=== PATIENT | female | born 1975 | race Caucasian/White ===

== ENCOUNTER 2017-04-22 16:08 | Emergency (ER) | payer BC, SELFPAY ==
[2017-04-22 17:56] VITALS: BP 148/73; PULSE 78; RESP 18; TEMP 37.7; O2SAT 99; BMI 28.8
--- NOTE | 2017-04-22 18:25 | HMH.EDUTC ---
[facility] Disposition Clinical Impression: Upper respiratory infection Qualifiers: URI type: unspecified URI Qualified Code(s): J06.9 - Acute upper respiratory infection, unspecified Disposition: Home, Self-Care Condition on Discharge: Good Instructions: Cough, DI for Nasal Congestion Additional Instructions: * Monitor Temp. Tylenol and/or Ibuprofen as needed. ER if fever is no less than 101 despite alternating Tylenol and Ibuprofen * Encourage fluids, water, Gatorade, powerade, pedialyte if /toddler/or child * Warm salt water gargles for throat irritation *Warm fluids *Sore throat lozenges *Sleep elevated *humidifier or vaporizer Lots of rest Increase fluids, water, Gatorade, powerade *Your throat swab was sent to lab for culture. Those results area typically sent to your primary care physician. Be sure to follow up in 2-3 days if no improvement so they can review those results and treat if necessary If you dont have primary care I recommend you get one, but in the mean time you will have to return to a walk in clinic Follow up IMMEDIATELY for new or worsening of symptoms OR no noticeable improvement over the next 48-72 hours. 911 immediately for any life threatening symptoms such as chest pain or difficulty breathing Prescriptions: Azithromycin [Z-Santo 250mg Tab] 250 mg PO UD DOSE PK #6 tab Benzonatate [Tessalon Perle 100mg Cap] 100 mg PO TID PRN #15 cap PRN Reason: Cough predniSONE [Deltasone 20mg tablet] 20 mg PO BID #10 tablet Referrals: Chris Duke MD [Primary Care Provider] - Time of Disposition: 18:38 Medical Decision Making Vital Signs: 04/22/17 17:56 Temperature 99.8 F H Temperature Source Temporal Artery Scan Pulse Rate [Right] 78 Respiratory Rate 18 Blood Pressure [Right Arm] 148/73 Blood Pressure Mean [Right Arm] 98 Blood Pressure Source [Right Arm] Automatic Cuff Blood Pressure Position [Right Arm] Sitting 02 Sat by Pulse Oximetry 99 Oxygen Delivery Method Room Air - James Inquiry Pt receiving controlled substance: No James was queried for this patient: No [facility] HPI - General Stated complaint: sore throat/body aches Mode of Arrival: Ambulatory Source of Information: Patient Limitations: No Limitations Description of Symptoms (Recalled from Triage Doc. by RN): COUGH, CONGESTION YESTERDAY HEENT Symptoms (Recalled from RN notes): Yes Resp Symptoms (Recalled from RN notes): No Skin Symptoms (Recalled from RN notes): No MS Symptoms (Recalled from RN notes): No Functional Status (Recalled from RN notes): N - History of Present Illness Provider Complaint: Patient state she has been having cough and congestion along wth sinus drainage and pressure States that it has continued to get worse over the last few days States that she had to miss work because of her illness so she came in to be seen - Related Data Previous Rx's Medication Instructions Recorded Azithromycin [Z-Santo 250mg Tab] 250 mg PO UD DOSE PK #6 tab 04/22/17 Benzonatate [Tessalon Perle 100mg 100 mg PO TID PRN #15 cap 04/22/17 Cap] predniSONE [Deltasone 20mg 20 mg PO BID #10 tab 04/22/17 tablet] Allergies Allergy/AdvReac Type Severity Reaction Status Date / Time Penicillins Allergy Mild Verified 04/22/17 18:01 iodine Allergy Unknown BLISTERING Verified 04/22/17 18:01 WELTS ofloxacin Allergy Unknown Verified 04/22/17 18:01 ADHESIVES Allergy Severe S-BLISTERING Uncoded 04/07/17 14:39 WELTS - Worker's Comp Is this a Worker's Comp case?: No [facility] History - *Social History Alcohol Intake: never - Psychiatric History Expresses thoughts of harming self/others: None Suicide Plan Description: No Plan - Constitutional Reports chills, Reports fever(s) - ENT Reports sore throat - Respiratory Reports cough Physical Exam - General General appearance: alert, in no apparent distress - Expanded ENT Exam Nose exam: Present: sinus tenderness Comment: Throat red, ir
--- NOTE | 2017-04-22 18:29 | ED_ITS ---
[facility] [place] Disposition Clinical Impression: Upper respiratory infection Qualifiers: URI type: unspecified URI Qualified Code(s): J06.9 - Acute upper respiratory infection, unspecified Disposition: Home, Self-Care Condition on Discharge: Good Instructions: Cough, DI for Nasal Congestion Additional Instructions: * Monitor Temp. Tylenol and/or Ibuprofen as needed. ER if fever is no less than 101 despite alternating Tylenol and Ibuprofen * Encourage fluids, water, Gatorade, powerade, pedialyte if /toddler/or child * Warm salt water gargles for throat irritation *Warm fluids *Sore throat lozenges *Sleep elevated *humidifier or vaporizer Lots of rest Increase fluids, water, Gatorade, powerade *Your throat swab was sent to lab for culture. Those results area typically sent to your primary care physician. Be sure to follow up in 2-3 days if no improvement so they can review those results and treat if necessary If you don? t have primary care I recommend you get one, but in the mean time you will have to return to a walk in clinic Follow up IMMEDIATELY for new or worsening of symptoms OR no noticeable improvement over the next 48-72 hours. 911 immediately for any life threatening symptoms such as chest pain or difficulty breathing Prescriptions: Azithromycin [Z-Santo 250mg Tab] 250 mg PO UD DOSE PK #6 tab Benzonatate [Tessalon Perle 100mg Cap] 100 mg PO TID PRN #15 cap PRN Reason: Cough predniSONE [Deltasone 20mg tablet] 20 mg PO BID #10 tablet Referrals: Chris Dkue MD [Primary Care Provider] - Time of Disposition: 18:38 Medical Decision Making Vital Signs: 04/22/17 17:56 Temperature 99.8 F H Temperature Source Temporal Artery Scan Pulse Rate [Right] 78 Respiratory Rate 18 Blood Pressure [Right Arm] 148/73 Blood Pressure Mean [Right Arm] 98 Blood Pressure Source [Right Arm] Automatic Cuff Blood Pressure Position [Right Arm] Sitting 02 Sat by Pulse Oximetry 99 Oxygen Delivery Method Room Air - James Inquiry Pt receiving controlled substance: No James was queried for this patient: No [facility] [place] HPI - General Stated complaint: sore throat/body aches Mode of Arrival: Ambulatory Source of Information: Patient Limitations: No Limitations Description of Symptoms (Recalled from Triage Doc. by RN): COUGH, CONGESTION YESTERDAY HEENT Symptoms (Recalled from RN notes): Yes Resp Symptoms (Recalled from RN notes): No Skin Symptoms (Recalled from RN notes): No MS Symptoms (Recalled from RN notes): No Functional Status (Recalled from RN notes): N - History of Present Illness Provider Complaint: Patient state she has been having cough and congestion along wth sinus drainage and pressure States that it has continued to get worse over the last few days States that she had to miss work because of her illness so she came in to be seen - Related Data Previous Rx's Medication Instructions Recorded Azithromycin [Z-Santo 250mg Tab] 250 mg PO UD DOSE PK #6 tab 04/22/17 Benzonatate [Tessalon Perle 100mg 100 mg PO TID PRN #15 cap 04/22/17 Cap] predniSONE [Deltasone 20mg 20 mg PO BID #10 tab 04/22/17 tablet] Allergies Allergy/AdvReac Type Severity Reaction Status Date / Time Penicillins Allergy Mild Verified 04/22/17 18:01 iodine Allergy Unknown BLISTERING Verified 04/22/17 18:01 WELTS ofloxacin Allergy Unknown Verified 04/22/17
[2017-04-22 18:33] LABS: UTC Influenza A Antigen Negative (Negative); UTC Influenza B Antigen Negative (Negative)
== END 2017-04-22 18:50 | disposition home or self-care (01) ==
PROVIDERS: Emergency Provider Nurse Practitioner; Family Provider Internal Medicine Adolescent Medicine; PCP Internal Medicine Adolescent Medicine
DX: J06.9 Acute upper respiratory infection, unspecified (principal); Z88.0 Allergy status to penicillin; Z88.8 Allergy status to other drugs, medicaments and biological substances
CPT/HCPCS: 87276; 87804; 99202

== ENCOUNTER 2017-06-14 18:42 | Emergency (ER) | payer BC, SELFPAY ==
[2017-06-14 18:57] VITALS: BP 130/92; PULSE 79; RESP 20; TEMP 37.2; O2SAT 99; BMI 28.8
--- NOTE | 2017-06-14 18:58 | HMH.EDUTC ---
[facility] [place] Impression: Gastroenteritis Disposition: Home, Self-Care Condition on Discharge: Good Instructions: DI for Viral Gastroenteritis -- Adult Prescriptions: Ondansetron [Zofran 8mg ODT] 8 mg PO TIDP PRN 10 Days #30 tab PRN Reason: nausea/vomiting Referrals: Chris Duke MD [Primary Care Provider] - Time of Disposition: 19:44 Medical Decision Making - Medical Records Medical records reviewed: Yes: I reviewed the patient's medical records. Vital Signs: 06/14/17 18:57 Temperature 98.9 F Temperature Source Temporal Artery Scan Pulse Rate [Left Brachial] 79 Respiratory Rate 20 Blood Pressure [Left Arm] 130/92 Blood Pressure Mean [Left Arm] 104 Blood Pressure Source [Left Arm] Automatic Cuff Blood Pressure Position [Left Arm] Sitting 02 Sat by Pulse Oximetry 99 Oxygen Delivery Method Room Air - Lab Data Lab Results 06/14/17 19:20: Influenza Type A Ag Negative, Influenza Type B Ag Negative Orders (Tests/Meds): ED MEDICATIONS Discontinued Medications Generic Name Dose Route Start Last Admin Trade Name Freq PRN Reason Stop Dose Admin Ondansetron HCl 4 mg 06/14/17 19:10 06/14/17 19:11 Zofran 4mg Odt 06/14/17 19:11 4 mg ONCE ONE Administration Ondansetron HCl 4 mg 06/14/17 19:41 Zofran 4mg Odt 06/14/17 19:42 ONCE ONE - James Inquiry Pt receiving controlled substance: No Medical Decision Making Narrative: No vomiting or diarrhea after Zofran ODT - able to tolerate Sprite [facility] [place] - General Stated complaint: vomiting, diaherra, body aches Time Seen by Provider: 06/14/17 18:58 - History of Present Illness Provider Complaint: Nausea, vomiting and diarrhea since early this am. Seems to be getting worse as the day goes on. Mouth is very dry and feels weak and shaky. Has been hot and clammy, then has chills, but didn't take temp with thermometer. No sore throat or cough. Left ear feels full. Onset (ago): hour(s) (12) Location: abdomen Relieving factors: none Exacerbating factors: eating Associated symptoms: fever/chills, nausea/vomiting Treatments prior to arrival: none - Related Data Previous Rx's Medication Instructions Recorded Azithromycin [Z-Santo 250mg Tab] 250 mg PO UD DOSE PK #6 tab 04/22/17 Benzonatate [Tessalon Perle 100mg 100 mg PO TID PRN #15 cap 04/22/17 Cap] predniSONE [Deltasone 20mg 20 mg PO BID #10 tab 04/22/17 tablet] Ondansetron [Zofran 8mg ODT] 8 mg PO TIDP PRN 10 Days #30 tab 06/14/17 Allergies Allergy/AdvReac Type Severity Reaction Status Date / Time Penicillins Allergy Mild Verified 04/22/17 18:01 iodine Allergy Unknown BLISTERING Verified 04/22/17 18:01 WELTS ofloxacin Allergy Unknown Verified 04/22/17 18:01 ADHESIVES Allergy Severe S-BLISTERING Uncoded 04/07/17 14:39 WELTS [facility] History I have reviewed the patient's past medical history: Yes - Social History Alcohol Intake: never ROS Obtained: Yes All systems reviewed & no additional complaints - ENT Ears, Nose, Mouth, and Throat: Reports headache(s) - Gastrointestinal Gastrointestingal: Reports: diarrhea, nausea, vomiting Physical Exam - General General appearance: alert, in no apparent distress - Head Head exam: atraumatic, normocephalic, normal inspection - Eye Eye exam: Present: normal appearance, PERRL, EOMI - ENT ENT exam: Present: normal exam, normal oropharynx, mucous membranes dry, TM's normal bilaterally, normal external ear exam - Neck Neck exam: Present: normal inspection, full ROM, trachea midline. Absent: meningismus, lymphadenopathy - Chest Chest inspection: Present: normal inspection, symmetric chest wall rise. Absent: tenderness - Respiratory Respiratory exam: Present: normal lung sounds bilaterally. Absent: respiratory distress - Cardiovascular Cardiovascular exam: Present: regular rate, normal rhythm. Absent: JVD - Abdominal Exam Abdominal
--- NOTE | 2017-06-14 19:05 | ED_ITS ---
[facility] [place] Disposition Clinical Impression: Gastroenteritis Disposition: Home, Self-Care Condition on Discharge: Good Instructions: DI for Viral Gastroenteritis -- Adult Prescriptions: Ondansetron [Zofran 8mg ODT] 8 mg PO TIDP PRN 10 Days #30 tab PRN Reason: nausea/vomiting Referrals: Chris Duke MD [Primary Care Provider] - Time of Disposition: 19:44 Medical Decision Making - Medical Records Medical records reviewed: Yes: I reviewed the patient's medical records. Vital Signs: 06/14/17 18:57 Temperature 98.9 F Temperature Source Temporal Artery Scan Pulse Rate [Left Brachial] 79 Respiratory Rate 20 Blood Pressure [Left Arm] 130/92 Blood Pressure Mean [Left Arm] 104 Blood Pressure Source [Left Arm] Automatic Cuff Blood Pressure Position [Left Arm] Sitting 02 Sat by Pulse Oximetry 99 Oxygen Delivery Method Room Air - Lab Data Lab Results 06/14/17 19:20: Influenza Type A Ag Negative, Influenza Type B Ag Negative Orders (Tests/Meds): ED MEDICATIONS Discontinued Medications Generic Name Dose Route Start Last Admin Trade Name Freq PRN Reason Stop Dose Admin Ondansetron HCl 4 mg 06/14/17 19:10 06/14/17 19:11 Zofran 4mg Odt 06/14/17 19:11 4 mg ONCE ONE Administration Ondansetron HCl 4 mg 06/14/17 19:41 Zofran 4mg Odt 06/14/17 19:42 ONCE ONE - James Inquiry Pt receiving controlled substance: No Medical Decision Making Narrative: No vomiting or diarrhea after Zofran ODT - able to tolerate Sprite [facility] [place] HPI - General Stated complaint: vomiting, diaherra, body aches Time Seen by Provider: 06/14/17 18:58 - History of Present Illness Provider Complaint: Nausea, vomiting and diarrhea since early this am. Seems to be getting worse as the day goes on. Mouth is very dry and feels weak and shaky. Has been hot and clammy, then has chills, but didn't take temp with thermometer. No sore throat or cough. Left ear feels full. Onset (ago): hour(s) (12) Location: abdomen Relieving factors: none Exacerbating factors: eating Associated symptoms: fever/chills, nausea/vomiting Treatments prior to arrival: none - Related Data Previous Rx's Medication Instructions Recorded Azithromycin [Z-Santo 250mg Tab] 250 mg PO UD DOSE PK #6 tab 04/22/17 Benzonatate [Tessalon Perle 100mg 100 mg PO TID PRN #15 cap 04/22/17 Cap] predniSONE [Deltasone 20mg 20 mg PO BID #10 tab 04/22/17 tablet] Ondansetron [Zofran 8mg ODT] 8 mg PO TIDP PRN 10 Days #30 tab 06/14/17 Allergies Allergy/AdvReac Type Severity Reaction Status Date / Time Penicillins Allergy Mild Verified 04/22/17 18:01 iodine Allergy Unknown BLISTERING Verified 04/22/17 18:01 WELROSSY ofloxacin Allergy Unknown Verified 04/22/17 18:01 ADHESIVES Allergy Severe S-BLISTERING Uncoded 04/07/17 14:39 JAMILA [facility] History I have reviewed the patient's past medical history: Yes - Social History Alcohol Intake: never ROS Obtained: Yes All systems reviewed & no additional complaints - ENT Ears, Nose, Mouth, and Throat: Reports headache(s) - Gastrointestinal Gastrointestingal: Reports: diarrhea, nausea, vomiting Physical Exam
[2017-06-14 19:22] LABS: UTC Influenza A Antigen Negative (Negative); UTC Influenza B Antigen Negative (Negative)
--- NOTE | 2017-06-14 19:25 | PC.NURSE ---
GIVING PT A SPRITE TO DRINK AT THIS TIME TO SEE IF HER NAUSEA HAS SUBSIDED ENOUGH IN ORDER FOR HER TO TOLERATE PO FLUIDS.
[2017-06-14 19:48] VITALS: BP 130/92; PULSE 79; RESP 20; TEMP 37.2; O2SAT 99
== END 2017-06-14 19:50 | disposition home or self-care (01) ==
PROVIDERS: Emergency Provider Physician Assistant; Family Provider Internal Medicine Adolescent Medicine; PCP Internal Medicine Adolescent Medicine
DX: K52.9 Noninfective gastroenteritis and colitis, unspecified (principal); Z88.0 Allergy status to penicillin
CPT/HCPCS: 87804; 99202

== ENCOUNTER 2017-07-01 09:59 | Emergency (ER) | payer BC, SELFPAY ==
[2017-07-01 10:01] VITALS: BP 141/90; PULSE 65; RESP 20; TEMP 36.9; O2SAT 96; BMI 28.1
--- NOTE | 2017-07-01 10:10 | CT_ITS ---
CT head/brain wo con HISTORY: Left-sided facial numbness ITS.REASON: numbness to l side of face ORDERING PHYSICIAN: James Castro MD PATIENT AGE: 41 years COMPARISON: None TECHNIQUE: Axial images obtained without contrast. Brain and bone windows reviewed. FINDINGS: No midline shift, mass effect, intracranial hemorrhage, hydrocephalus, or extra-axial fluid collection is evident. The calvarium has an unremarkable appearance. No mastoid effusion. No sinus air-fluid levels.. IMPRESSION: No acute intracranial findings. There is no evidence of intracranial hemorrhage, focal mass, or acute territorial infarction. A negative CT does not exclude an acute CVA. A follow-up head CT or MRI is recommended if neurological symptoms persist
[2017-07-01 10:38] LABS: Alanine Aminotransferase 22 U/L (12-78); Albumin/Globulin Ratio 1.1 (1.1-1.8); Alkaline Phosphatase 80 U/L (46-116); Anion Gap 11.4 mEq/L (5-15); Aspartate Amino Transferase 17 U/L (15-37); Bilirubin,Total 0.2 mg/dL (0.2-1.0); Blood Urea Nitrogen 26 mg/dL (7-18); Calcium 8.8 mg/dL (8.5-10.1); Carbon Dioxide 29 mmol/L (21.0-32.0); Chloride 107 mmol/L (98-107); Creatinine Clearance Estimated 76 mL/min (0-300); Creatinine,Serum 1.31 mg/dL (0.55-1.02); Estimated Glomerular Filt Rate 45 ml/min (>60); GFR (African American) 54 ML/MIN (>60); Globulin 3.6 gm/dl (1.3-3.2); Glucose 100 mg/dL (74-106); Potassium 3.4 mmoL/L (3.5-5.1); Sodium 144 mmol/L (136-145); Total Protein,Serum 7.6 gm/dL (6.4-8.2)
--- NOTE | 2017-07-01 10:42 | HMH.EDGENADL ---
ED Disposition Clinical Impression: Gunn's palsy, Herpes labialis Disposition: Home, Self-Care Condition on Discharge: Good Instructions: DI for Gunn's Palsy, DI for Cold Sores Prescriptions: Famciclovir 500 mg PO TID #21 tab predniSONE [Prednisone 10mg Tab Dose-Pack] 10 mg PO DAILY #42 tab Referrals: Chrsi Duke MD [Primary Care Provider] - 3 days Forms: Work/School Release - Critical Care Critical Care Time: No Attestation: On 07/01/17, the high probability of a clinically significant, sudden or life threatening deterioration of the following system(s) required my full and direct attention, intervention and personal management. The time I documented below is in addition to time spent performing reported procedures but includes the following listed in this critical care notation. Medical Decision Making - James Inquiry Pt receiving controlled substance: No Vital Signs: 07/01/17 10:01 Temperature 98.4 F Temperature Source Oral Pulse Rate [Right Brachial] 65 Respiratory Rate 20 Blood Pressure [Right Arm] 141/90 Blood Pressure Mean [Right Arm] 107 Blood Pressure Source [Right Arm] Automatic Cuff Blood Pressure Position [Right Arm] Sitting 02 Sat by Pulse Oximetry 96 Oxygen Delivery Method Room Air - Lab Data Lab Results 07/01/17 10:05: WBC 6.6, RBC 4.21, Hgb 13.0, Hct 41.2, MCV 97.8, MCH 30.9, MCHC 31.6 L, RDW 12.8, Plt Count 253, MPV 9.2, Neut % (Auto) 51.1, Lymph % (Auto) 38.0, [place] % (Auto) 8.7, Eos % (Auto) 1.7, Baso % (Auto) 0.5, Neut # (Auto) 3.3, Lymph # (Auto) 2.5, [place] # (Auto) 0.6, Eos # (Auto) 0.1, Baso # (Auto) 0.0 07/01/17 10:05: Sodium 144, Potassium 3.4 L, Chloride 107, Carbon Dioxide 29, Anion Gap 11.4, BUN 26 H, Creatinine 1.31 H, Estimated Creat Clear 76, Estimated GFR 45 L, Est GFR ( Amer) 54 L, Glucose 100, Calcium 8.8, Total Bilirubin 0.2, AST 17, ALT 22, Alkaline Phosphatase 80, Total Protein 7.6, Albumin 4.0, Globulin 3.6 H, Albumin/Globulin Ratio 1.1 Result diagrams: 07/01/17 10:05 07/01/17 10:05 - CT Data CT Scan: Head Time Received: 10:[address] Reviewed: Yes: I have viewed the radiologist's interpretation Preliminary Findings: Normal/NAD General Adult HPI - General Chief complaint: Neuro Symptoms/Deficit Stated complaint: FACIAL TINGLING Mode of Arrival: Family Vehicle Limitations: No Limitations Description of Symptoms (Recalled from ER Triage Doc. by RN): C/O LIP SWELLING YESTERDAY BUT TODAY C/O NUMNBNESS AND TINGLING OF LEFT SIDE OF FACE WITH SENSATION OF FACIAL TIGHTNESS AND DIFFICULTY WITH OPENING AND CLOSING LEFT EYE - History of Present Illness HPI narrative: The patient complains of swelling of her left lower lip and a sensation of numbness and drawing on the left side of her face. Symptoms began yesterday with some swelling of her left lower lip. When she woke up this morning she has some scabs on the lower lip, she says she thinks she might have been biting her lip in her sleep. She has no history of herpes simplex virus in the past. Today she also feels like there is a different sensation on the left side of her face that makes it feel different than the right and a sensation that the left side of her face is pulling or drawing. No numbness or weakness of the arms or legs. No fever. No visual changes or speech changes. - Related Data Home Medications Medication Instructions Recorded Confirmed Estradiol [Estradiol] 1 patch TD DIRECTED 07/01/17 07/01/17 Previous Rx's Medication Instructions Recorded Famciclovir 500 mg PO TID #21 tab 07/01/17 predniSONE [Prednisone 10mg Tab 10 mg PO DAILY #42 tab 07/01/17 Dose-Pack] Allergies Allergy/AdvReac Type Severity Reaction Status Date / Time Penicillins Allergy Mild Verified 04/22/17 18:01 iodine Allergy Unknown BLISTERING Verified 04/22/17 18:01 WELTS ofloxacin Allergy Unknown Verified 04/22/17 18:01 ADHESIVES Allergy Severe S-BLISTERING Uncoded 04/07/17 14:39
[2017-07-01 10:45] LABS: Basophils % 0.5 % (0.1-2.0); Eosinophils # 0.1 K/mm3 (0.0-0.4); Eosinophils % 1.7 % (0.1-12.0); Hematocrit 41.2 % (37.0-47.0); Lymphocytes # 2.5 K/mm3 (0.7-4.5); Mean Corpuscular HGB Conc 31.6 g/dL (31.8-35.4); Mean Corpuscular Hemoglobin 30.9 pg (27.0-31.2); Mean Corpuscular Volume 97.8 fl (81-99); Mean Platelet Volume 9.2 fl (7.4-10.4); Monocytes # 0.6 K/mm3 (0.1-1.0); Monocytes % 8.7 % (1.7-9.3); Neutrophils # 3.3 K/mm3 (1.8-7.8); Neutrophils % 51.1 % (37.0-80.0); Platelet Count 253 K/mm3 (142-424); Red Blood Count 4.21 M/mm3 (4.20-5.40); Red Cell Distribution Width 12.8 % (11.5-17.5); White Blood Count 6.6 K/mm3 (4.8-10.8)
[2017-07-01 11:42] VITALS: BP 128/75; PULSE 72; RESP 18; TEMP 36.6; O2SAT 98
== END 2017-07-01 11:42 | disposition home or self-care (01) ==
PROVIDERS: Emergency Provider Emergency Medicine; Family Provider Internal Medicine Adolescent Medicine; PCP Internal Medicine Adolescent Medicine
DX: G51.0 Bell's palsy (principal); B00.1 Herpesviral vesicular dermatitis; Z88.0 Allergy status to penicillin
CPT/HCPCS: 70450; 80053; 85025; 99282

== ENCOUNTER → 2017-12-16 12:48 | Outpatient (CLI) | payer BC, SELFPAY ==
--- NOTE | 2017-12-16 12:52 | NVE_ITS ---
Venous Exam Indications: 729.5 Pain in limb. IMPRESSIONS 1. There is no evidence of significant Reflux. 2. No evidence of deep or superficial vein thrombosis involving the left lower extremity History: Left lower extremity pain. Swelling of the left lower extremity. 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 Patient wears hormone patches since hysterectomy more than 10 years ago. Her acid blower recently changed the dosage of the patches. Patient states 1 week ago she started experiencing charley horses in the left leg that progressively got worse. The pain has now moved up into the thigh area of the left lower extremity. Left lower extremity venous duplex evaluation. Doppler flow study including spectral analysis, color and cooper scale imaging. Location: Vascular laboratory. Patient status: Outpatient. CRITICAL FINDINGS - Reported to: Venita Melgoza - Read back and verified. - 12/16/17 - 13:25 - LLE negative for DVT or SVT Tables: Venous flow and imaging: + +-------+ + Location Overall Flow properties + +-------+ + Left common femoral Patent Normal phasicity; spontaneous; normal augmentation; compressible + +-------+ + Left saphenofemoral junction Patent Compressible + +-------+ + Left profunda femoral Patent Compressible + +-------+ + Left femoral Patent Normal phasicity; spontaneous; normal augmentation; compressible + +-------+ + Left greater saphenous Patent Normal phasicity; spontaneous; normal augmentation; compressible + +-------+ + Left popliteal Patent Normal phasicity; spontaneous; normal augmentation; compressible + +-------+ + Left posterior tibial Patent Compressible + +-------+ + Left peroneal Patent Compressible + +-------+ + Left gastrocnemius Patent Compressible + +-------+ + Left soleal Patent Compressible + +-------+ + (Report amended ) Electronically signed by: Fawad Guerrero [id number]
[2017-12-16 14:01] LABS: Basophils % 0.9 % (0.1-2.0); Eosinophils # 0.1 K/mm3 (0.0-0.4); Eosinophils % 2.5 % (0.1-12.0); Hematocrit 40.4 % (37.0-47.0); Hemoglobin 13.1 g/dL (12.2-16.2); Lymphocytes # 2.1 K/mm3 (0.7-4.5); Lymphocytes % 44.4 K/mm3 (10-50); Mean Corpuscular HGB Conc 32.4 g/dL (31.8-35.4); Mean Corpuscular Hemoglobin 31.6 pg (27.0-31.2); Mean Corpuscular Volume 97.4 fl (81-99); Monocytes # 0.3 K/mm3 (0.1-1.0); Monocytes % 6.4 % (1.7-9.3); Neutrophils # 2.1 K/mm3 (1.8-7.8); Neutrophils % 45.7 % (37.0-80.0); Platelet Count 273 K/mm3 (142-424); Red Blood Count 4.15 M/mm3 (4.20-5.40); Red Cell Distribution Width 12.8 % (11.5-17.5); White Blood Count 4.6 K/mm3 (4.8-10.8)
[2017-12-16 15:47] LABS: Alanine Aminotransferase 24 U/L (12-78); Albumin Level 4.1 gm/dL (3.4-5.0); Albumin/Globulin Ratio 1.4 (1.1-1.8); Alkaline Phosphatase 77 U/L (46-116); Anion Gap 11.6 mEq/L (5-15); Aspartate Amino Transferase 18 U/L (15-37); Bilirubin,Total 0.6 mg/dL (0.2-1.0); Blood Urea Nitrogen 25 mg/dL (7-18); Calcium 8.9 mg/dL (8.5-10.1); Carbon Dioxide 29 mmol/L (21.0-32.0); Chloride 108 mmol/L (98-107); Creatinine,Serum 1.05 mg/dL (0.55-1.02); Estimated Glomerular Filt Rate 58 ml/min (>60); GFR (African American) 70 ML/MIN (>60); Glucose 86 mg/dL (74-106); Potassium 4.6 mmoL/L (3.5-5.1); Sodium 144 mmol/L (136-145); Thyroid Stimulating Hormone 2.17 uIU/ml (0.358-3.740); Total Protein,Serum 7.1 gm/dL (6.4-8.2)
[2017-12-18 13:21] LABS: Vitamin B12 374 pg/mL (232-1245)
[2017-12-18 13:22] LABS: Vitamin D 25 Hydroxy 22.6 ng/mL (30.0-100.0)
== END ==
PROVIDERS: PCP Internal Medicine Adolescent Medicine; Visit Provider Nurse Practitioner Family
DX: M79.662 Pain in left lower leg (principal)
CPT/HCPCS: 36415; 80053; 82607; 82652; 84443; 85025; 93971

== ENCOUNTER 2018-11-10 15:49 | Inpatient (IN) ==
[2018-11-10 16:57] LABS: Basophils % 0.3 % (0.1-2.0); Eosinophils # 0.1 K/mm3 (0.0-0.4); Eosinophils % 0.9 % (0.1-12.0); Hemoglobin 12.8 g/dL (12.2-16.2); Lymphocytes # 0.8 K/mm3 (0.7-4.5); Lymphocytes % 7.9 % (10-50); Mean Corpuscular HGB Conc 31.9 g/dL (31.8-35.4); Mean Corpuscular Volume 94.5 fl (81-99); Mean Platelet Volume 7.6 fl (7.4-10.4); Monocytes # 0.3 K/mm3 (0.1-1.0); Monocytes % 3.2 % (1.7-9.3); Neutrophils # 8.9 K/mm3 (1.8-7.8); Neutrophils % 87.7 % (37.0-80.0); Platelet Count 238 K/mm3 (142-424); Red Blood Count 4.24 M/mm3 (4.20-5.40); Red Cell Distribution Width 12.9 % (11.5-17.5); White Blood Count 10.1 K/mm3 (4.8-10.8)
[2018-11-10 17:04] LABS: Anion Gap 14.4 mEq/L (5-15); Calcium 8.9 mg/dL (8.5-10.1)
--- NOTE | 2018-11-10 17:35 | History & Physical Report ---
*Admission Date: 11/10/18 *Chief complaint: Left-sided flank pain, tachycardia, recent kidney stone *History of present illness: 43-year-old white female with history of single kidney secondary to multiple stones, dysfunctional nephrostomy tube and removal of kidney several years ago who has had a couple of recurrent stones on the left side, most recently yesterday when she came to the emergency department with a chief complaint of left-sided CVA pain radiating into the flank. CT scan yesterday in the ER confirmed that she had a stone, 4 mm, that apparently migrated into the ureter. She was able to keep fluids down in the ER and after pain medicine administration was discharged home. She presented to my office today with continued pain, feelings of fever and dehydration. In the office she had a pulse rate of 110, temperature of 102 degrees, normal blood pressure, but given her signs of sepsis she was admitted to hospital for IV fluids, antibiotics and further diagnostic testing. [facility] History I have reviewed the patient's past medical history: Yes Medical History: Reports:: Anxiety Denies:: Cancer, Diabetes Mellitus Type 1, Diabetes Mellitus Type 2, MRSA *Have you ever received a pneumonia vaccine?: No *Have you received a flu vaccine this season?: Yes Other Medical History: Reports: Anemia Laterality Cases: Bilateral: Tonsillectomy Other Surgeries: Yes: Other (right kidney removal) Amputation: No (right kidney removal) Fractures: No - *Social History Smoking Status: Never smoker Alcohol Intake: never *Occupational Status:: employed Housing: house *Travel in the last 8 weeks: None Family Hx:: No significant family history Review of Systems - Review of Systems Review of systems:: pertinent systems reviewed and negative unless documented below - Constitutional Reports anorexia, Reports body ache(s), Reports chills, Reports fever(s) - Eyes Denies blind spots, Denies blurry vision, Denies floaters - ENT Reports dry mouth, Denies abnormal hearing, Denies poor balance, Denies dizziness - *Cardiovascular Denies chest pain, Denies excessive sweating, Denies generalized swelling - *Respiratory Denies change in phlegm color, Denies chest congestion, Denies cough - *Gastrointestinal Reports abdominal pain, Denies change in bowel habits, Denies change in stools, Denies coffee ground vomit, Denies difficulty swallowing, Denies feeling full early - *Genitourinary Denies abnormal periods, Denies abnormal vaginal bleeding - *Musculoskeletal Denies abnormal walking, Denies joint pain, Denies limited joint movement, Denies body aches - Integumentary/Breasts Denies acne, Denies change in skin color, Denies excessive hair growth - *Neurologic Denies abnormal walking, Denies abnormal hearing, Denies behavioral changes, Denies burning sensations - Psychiatric Denies abnormal sleep pattern - Endocrine Reports rapid, pounding, or irregular heartbeat, Denies cold intolerance, Denies excessive sweating - Hematologic/Lymphatic Denies easy bleeding, Denies easy bruising - Allergic/Immunologic Denies GI upset with certain foods, Denies tongue swelling Meds Home Medications Medication Instructions Recorded Confirmed Type Estradiol 1 patch TD DIRECTED 07/01/17 11/10/18 History Allergies Allergy/AdvReac Type Severity Reaction Status Date / Time Penicillins Allergy Mild Verified 04/22/17 18:01 iodine Allergy Unknown BLISTERING Verified 04/22/17 18:01 WELTS ofloxacin Allergy Unknown Verified 04/22/17 18:01 ADHESIVES Allergy Severe S-BLISTERING Uncoded 04/07/17 14:39 WELTS Exam Vital signs and Labs for Last 24 Hours: Temp Pulse Resp BP Pulse Ox 98.7 F 87 18 118/73 97 11/10/18 16:12 11/10/18 16:12 11/10/18 16:12 11/10/18 16:12 11/10/18 16:12 Laboratory Results - last 24 hr 11/10/18 16:20: WBC 10.1, RBC 4.24, Hgb 12.8, Hct 40.0, MCV 94.5, MCH 30.1, MCHC 31.9, RDW 12.9, Plt Count 238 D, MPV 7.6, Neut % (Auto) 87.7 H, Lymph % (Auto) 7.9 L, [place] % (Auto) 3.2, Eos % (Auto) 0.9, Baso % (Auto) 0.3, Neut # (Auto) 8.9 H, Lymph # (Auto) 0.8, [place] # (Auto) 0.3, Eos # (Auto) 0.1, Baso # (Auto) 0.0 11/10/18 16:20: Sodium 137, Potassium 3.4 L, Chloride 103, Carbon Dioxide 23, Anion Gap 14.4, BUN 14 D, Creatinine 1.12 H D, Estimated Creat Clear 86, Estimated GFR 53 L, Est GFR ( Amer) 65 D, Glucose 93, Calcium 8.9 11/10/18 16:55: Lactate 0.6 I & O for Last 24 hours: Intake & Output 11/08/18 11/09/18 11/10/18 11/11/18 11:59 11:59 11:59 11:59 Weight 183 lb 7 oz Narrative: Patient is pleasant, talkative, appears moderately ill but not toxic. Lungs clear, good air movement. Abdomen soft, tenderness in the left lower quadrant noted, radiating into the flank. Left CVA tenderness noted. Abdomen is soft and without rebound or guarding. Heart rate regular, tachycardia noted in the office. Good distal tissue perfusion. Neurologic exam unremarkable, no peripheral edema. Oropharynx dry, otherwise ENT exam clear. Assessment and Plan (1) SIRS (systemic inflammatory response syndrome) Current visit: Yes Status: Acute Category: Medical Code(s): R65.10 - Systemic inflammatory response syndrome (SIRS) of non-infectious origin without acute organ dysfunction start iv abx, fluids, labs as indicated (2) Renal colic on left side Current visit: No Status: Acute Category: Medical Code(s): N23 - Unspecified renal colic No repeat CT scan for now as patient's symptoms seem to indicate that stone is moving. IV fluids. Antibiotics as noted. Toradol for pain as needed (3) Renal insufficiency Current visit: No Status: Acute Category: Medical Code(s): N28.9 - Disorder of kidney and ureter, unspecified Has improved since yesterday. Labs tomorrow.
[2018-11-10 18:33] LABS: Microscopic, Urine URINE MICROSCOPIC (MICROSCOPIC)
[2018-11-10 18:38] LABS: Appearance,Urine CLEAR (Clear); Bilirubin,Urine Negative (Negative); Blood, Urine 2+ (Negative); Color,Urine YELLOW (Yellow); Glucose,Urine (UA) Negative (Negative); Ketones,Urine 1+ (Negative); Leukocyte Esterase,Urine 1+ (Negative); Protein,Urine Negative (Negative); Urobilinogen,Urine 0.2 EU/dl (0.2)
[2018-11-10 18:45] LABS: Amorphous Sediment,Urine 1+ /lpf; Bacteria,Urine 2+ /lpf; RBC,Urine Occasional #/hpf (0-3)
[2018-11-10 19:13] LABS: Lymphocytes % 4 % (10-50); Monocytes % 2 % (2-9); Neutrophils % 82 % (42-76); Total Cells Counted 100
[2018-11-10 19:14] LABS: RBC Morphology Normal
[2018-11-11 06:39] LABS: Basophils % 0.1 % (0.1-2.0); Monocytes # 0.6 K/mm3 (0.1-1.0)
[2018-11-11 06:43] LABS: Albumin Level 2.4 gm/dL (3.4-5.0); Albumin/Globulin Ratio 0.7 (1.1-1.8); Anion Gap 10.7 mEq/L (5-15); Bilirubin,Total 0.4 mg/dL (0.2-1.0); Calcium 8.1 mg/dL (8.5-10.1); Globulin 3.3 gm/dl (1.3-3.2); Total Protein,Serum 5.7 gm/dL (6.4-8.2)
[2018-11-11 07:21] LABS: Eosinophils % 0.3 % (0.1-12.0); Hematocrit 32.7 % (37.0-47.0); Lymphocytes % 13.7 % (10-50); Mean Corpuscular HGB Conc 32.5 g/dL (31.8-35.4); Mean Corpuscular Volume 93.9 fl (81-99); Mean Platelet Volume 8.6 fl (7.4-10.4); Monocytes % 8.1 % (1.7-9.3); Neutrophils # 5.8 K/mm3 (1.8-7.8); Neutrophils % 77.7 % (37.0-80.0); Platelet Count 218 K/mm3 (142-424); Red Blood Count 3.48 M/mm3 (4.20-5.40); Red Cell Distribution Width 12.8 % (11.5-17.5); White Blood Count 7.5 K/mm3 (4.8-10.8)
[2018-11-11 07:57] LABS: Hemoglobin 10.6 g/dL (12.2-16.2)
--- NOTE | 2018-11-11 08:48 | Pharmacy Consult Notes ---
[facility] Pharmacy VTE Monitoring - Patient Demographics Admission date: 11/10/18 Report Date: 11/11/18 Time: 08:48 Allergies/Adverse Reactions: Patient Allergies Penicillins Allergy (Mild, Verified 04/22/17 18:01) iodine Allergy (Unknown, Verified 04/22/17 18:01) BLISTERING WELTS ofloxacin Allergy (Unknown, Verified 04/22/17 18:01) ADHESIVES Allergy (Severe, Uncoded 04/07/17 14:39) S-BLISTERING WELTS Height: 1.73 m Weight: 83.178 kg Patient Problems: Current Active Problems (Updated 11/10/18 @ 17:38 by Chris Duke MD) SIRS (systemic inflammatory response syndrome) (Acute) - VTE Risk Labs: VTE Related Lab Results Hgb 10.6 g/dL (12.2-16.2) L D 11/11/18 05:26 Hct 32.7 % (37.0-47.0) L 11/11/18 05:26 Plt Count 218 K/mm3 (142-424) 11/11/18 05:26 BUN 12 mg/dL (7-18) 11/11/18 05:26 Creatinine 1.10 mg/dL (0.55-1.02) H 11/11/18 05:26 Estimated Creat Clear 87 mL/min (50-200) 11/11/18 05:26 Was VTE Risk Assessment Performed: Yes VTE Score: 4 VTE Risk Level: Low Risk - Prophylaxis VTE Prophylaxis Ordered?: Yes Types of VTE Prophylaxis: TEDS Knee High Location of Applied Device: Bilateral Lower Extremeties - VTE Diagnosis Confirmed Treatment or plan recommended: Continue Current Treatment
--- NOTE | 2018-11-11 08:55 | Discharge Summary ---
General - General Admission date:: 11/10/18 Discharge date: 11/11/18 HPI HPI: 43-year-old white female with history of single kidney secondary to multiple stones, dysfunctional nephrostomy tube and removal of kidney several years ago who has had a couple of recurrent stones on the left side, most recently yesterday when she came to the emergency department with a chief complaint of left-sided CVA pain radiating into the flank. CT scan yesterday in the ER confirmed that she had a stone, 4 mm, that apparently migrated into the ureter. She was able to keep fluids down in the ER and after pain medicine administration was discharged home. She presented to my office today with continued pain, feelings of fever and dehydration. In the office she had a pulse rate of 110, temperature of 102 degrees, normal blood pressure, but given her signs of sepsis she was admitted to hospital for IV fluids, antibiotics and further diagnostic testing. Hospital Course Hospital Course: During hospitalization patient's urine came back positive for for nitrate and leukoesterase concerning for UTI versus pyelonephritis given kidney stone and flank pain. Combination of source of infection, tachycardia, fever, meeting criteria for sepsis. Did well overnight with good tolerance of breakfast this morning. Has been afebrile for over 12 hours. Remains hemodynamically stable. Symptoms appear to be defervescing during admission. Patient feeling much better and well enough to go home. Medically stable for discharge home. Plan to transition to p.o. Levaquin to complete course of antibiotics in the outpatient setting. We will have close follow-up the beginning next week with our office. Afebrile, denies nausea, vomiting, diarrhea. Flank pain resolved. No shortness of breath or chest pain Objective Vital signs: Temp Pulse Resp BP Pulse Ox 98.3 F 56 L 17 93/62 L 98 11/11/18 07:58 11/11/18 07:58 11/11/18 07:58 11/11/18 07:58 11/11/18 08:00 Narrative: Patient is pleasant, talkative, no acute distress, alert and oriented x3 Lungs clear, good air movement. Abdomen soft, tenderness in abdomen resolved. Abdomen is soft and without rebound or guarding. Heart rate regular, regular rhythm, no murmurs. Good distal tissue perfusion. Neurologic exam unremarkable, no peripheral edema. Oropharynx moist, otherwise ENT exam clear. Results Labs on day of discharge: Labs from last 24 hours 11/11/18 11/11/18 11/10/18 05:26 05:26 17:40 WBC 7.5 D RBC 3.48 L Hgb 10.6 L D Hct 32.7 L MCV 93.9 MCH 30.5 MCHC 32.5 RDW 12.8 Plt Count 218 MPV 8.6 Neut % (Auto) 77.7 Lymph % (Auto) 13.7 [place] % (Auto) 8.1 Eos % (Auto) 0.3 Baso % (Auto) 0.1 Neut # (Auto) 5.8 Lymph # (Auto) 1.0 [place] # (Auto) 0.6 Eos # (Auto) 0.0 Baso # (Auto) 0.0 Total Counted Neutrophils % (Manual) Band Neutrophils % Lymphocytes % (Manual) Monocytes % (Manual) Platelet Estimate RBC Morphology Sodium 138 Potassium 3.7 Chloride 107 Carbon Dioxide 24 Anion Gap 10.7 BUN 12 Creatinine 1.10 H Estimated Creat Clear 87 Estimated GFR 54 L Est GFR ( Amer) 66 Glucose 97 Lactate Calcium 8.1 L Total Bilirubin 0.4 AST 29 D ALT 41 D Alkaline Phosphatase 75 Total Protein 5.7 L D Albumin 2.4 L Globulin 3.3 H Albumin/Globulin Ratio 0.7 L Urine Color Yellow Urine Appearance Clear Urine pH 6.0 Ur Specific [place] 1.010 Urine Protein Negative Urine Glucose (UA) Negative Urine Ketones 1+ Urine Blood 2+ Urine Nitrate Positive Urine Bilirubin Negative Urine Urobilinogen 0.2 Ur Leukocyte Esterase 1+ A Urine RBC Occasional Urine WBC 3-5 Ur Squamous Epith Cells 3-5 Amorphous Sediment 1+ Urine Bacteria 2+ 11/10/18 11/10/18 11/10/18 16:55 16:20 16:20 WBC 10.1 RBC 4.24 Hgb 12.8 Hct 40.0 MCV 94.5 MCH 30.1 MCHC 31.9 RDW 12.9 Plt Count 238 D MPV 7.6 Neut % (Auto) 87.7 H Lymph % (Auto) 7.9 L [place] % (Auto) 3.2 Eos % (Auto) 0.9 Baso % (Auto) 0.3 Neut # (Auto) 8.9 H Lymph # (Auto) 0.8 [place] # (Auto) 0.3 Eos # (Auto) 0.1 Baso # (Auto) 0.0 Total Counted 100 Neutrophils % (Manual) 82 H Band Neutrophils % 12.0 H Lymphocytes % (Manual) 4 L Monocytes % (Manual) 2 Platelet Estimate Normal RBC Morphology Normal Sodium 137 Potassium 3.4 L Chloride 103 Carbon Dioxide 23 Anion Gap 14.4 BUN 14 D Creatinine 1.12 H D Estimated Creat Clear 86 Estimated GFR 53 L Est GFR ( Amer) 65 D Glucose 93 Lactate 0.6 Calcium 8.9 Total Bilirubin AST ALT Alkaline Phosphatase Total Protein Albumin Globulin Albumin/Globulin Ratio Urine Color Urine Appearance Urine pH Ur Specific [place] Urine Protein Urine Glucose (UA) Urine Ketones Urine Blood Urine Nitrate Urine Bilirubin Urine Urobilinogen Ur Leukocyte Esterase Urine RBC Urine WBC Ur Squamous Epith Cells Amorphous Sediment Urine Bacteria DS: Diagnosis - Discharge Diagnosis (1) SIRS (systemic inflammatory response syndrome) Status: Resolved Problem details: Given source of infection, diagnosis transition to sepsis. Improving with IV antibiotics, symptoms defervesced. Continue antibiotics at home to complete course, total of 7 days (2) Renal colic on left side Status: Acute (3) Renal insufficiency Status: Chronic Discharge Plan - Patient Discharge Instructions ACTIVITY: Continue current activity DIET: continue same diet Patient Instructions: Kidney Stones -- Adult - Follow up Plan Follow up with: Chris Duke MD [Primary Care Provider] - Disposition: Home, Self-Half-Way Medications: Home Medications Medication Instructions Recorded Confirmed Type Estradiol 1 patch TD DIRECTED 07/01/17 11/10/18 History levoFLOXacin [Levaquin 750mg 750 mg PO DAILY 5 Days #5 tab 11/11/18 Rx tablet] Prescriptions/Medication Reconciliation: New levoFLOXacin [Levaquin 750mg tablet] 750 mg PO DAILY 5 Days #5 tab Continued Estradiol 1 patch TD DIRECTED
--- NOTE | 2018-11-11 09:57 | Progress Note ---
Internal Medicine - PN: Subj *Date: 11/11/18 *Time: 09:54 Interval history: Patient did well overnight. Feeling much better this morning. Afebrile. Tolerating regular diet. Flank pain more or less resolved. Overall back to baseline. Denies nausea, vomiting, diarrhea, chest pain, shortness of breath. Exam Vital signs and Labs for Last 24 Hours: Temp Pulse Resp BP Pulse Ox 98.3 F 56 L 17 93/62 L 98 11/11/18 07:58 11/11/18 07:58 11/11/18 07:58 11/11/18 07:58 11/11/18 08:00 Laboratory Results - last 24 hr 11/10/18 16:20: WBC 10.1, RBC 4.24, Hgb 12.8, Hct 40.0, MCV 94.5, MCH 30.1, MCHC 31.9, RDW 12.9, Plt Count 238 D, MPV 7.6, Neut % (Auto) 87.7 H, Lymph % (Auto) 7.9 L, [place] % (Auto) 3.2, Eos % (Auto) 0.9, Baso % (Auto) 0.3, Neut # (Auto) 8.9 H, Lymph # (Auto) 0.8, [place] # (Auto) 0.3, Eos # (Auto) 0.1, Baso # (Auto) 0.0, Total Counted 100, Neutrophils % (Manual) 82 H, Band Neutrophils % 12.0 H, Lymphocytes % (Manual) 4 L, Monocytes % (Manual) 2, Platelet Estimate Normal, RBC Morphology Normal 11/10/18 16:20: Sodium 137, Potassium 3.4 L, Chloride 103, Carbon Dioxide 23, Anion Gap 14.4, BUN 14 D, Creatinine 1.12 H D, Estimated Creat Clear 86, Estimated GFR 53 L, Est GFR ( Amer) 65 D, Glucose 93, Calcium 8.9 11/10/18 16:55: Lactate 0.6 11/10/18 17:40: Urine Color Yellow, Urine Appearance Clear, Urine pH 6.0, Ur Specific [place] 1.010, Urine Protein Negative, Urine Glucose (UA) Negative, Urine Ketones 1+, Urine Blood 2+, Urine Nitrate Positive, Urine Bilirubin Negative, Urine Urobilinogen 0.2, Ur Leukocyte Esterase 1+ A, Urine RBC Occasional, Urine WBC 3-5, Ur Squamous Epith Cells 3-5, Amorphous Sediment 1+, Urine Bacteria 2+ 11/11/18 05:26: WBC 7.5 D, RBC 3.48 L, Hgb 10.6 L D, Hct 32.7 L, MCV 93.9, MCH 30.5, MCHC 32.5, RDW 12.8, Plt Count 218, MPV 8.6, Neut % (Auto) 77.7, Lymph % (Auto) 13.7, [place] % (Auto) 8.1, Eos % (Auto) 0.3, Baso % (Auto) 0.1, Neut # (Auto) 5.8, Lymph # (Auto) 1.0, [place] # (Auto) 0.6, Eos # (Auto) 0.0, Baso # (Auto) 0.0 11/11/18 05:26: Sodium 138, Potassium 3.7, Chloride 107, Carbon Dioxide 24, Anion Gap 10.7, BUN 12, Creatinine 1.10 H, Estimated Creat Clear 87, Estimated GFR 54 L, Est GFR ( Amer) 66, Glucose 97, Calcium 8.1 L, Total Bilirubin 0.4, AST 29 D, ALT 41 D, Alkaline Phosphatase 75, Total Protein 5.7 L D, Albumin 2.4 L, Globulin 3.3 H, Albumin/Globulin Ratio 0.7 L I & O for Last 24 hours: Intake & Output 11/08/18 11/09/18 11/10/18 11/11/18 23:59 23:59 23:59 23:59 Intake Total 120 / 120 2333 / 2333 Output Total 700 / 700 600 / 600 Balance -580 / -580 1733 / 1733 Weight 83.206 kg 83.178 kg Microbiology Reports for the Last 24 Hours: Microbiology 11/10/18 16:55 Blood Blood Culture - Preliminary 11/10/18 16:20 Blood Blood Culture - Preliminary Narrative: Patient is pleasant, talkative, no acute distress, alert and oriented x3 Lungs clear, good air movement. Abdomen soft, tenderness in abdomen resolved. Abdomen is soft and without rebound or guarding. Heart rate regular, regular rhythm, no murmurs. Good distal tissue perfusion. Neurologic exam unremarkable, no peripheral edema. Oropharynx moist, otherwise ENT exam clear. Assessment and Plan (1) Renal colic on left side Current visit: No Status: Resolved Category: Medical Code(s): N23 - Unspecified renal colic (2) Renal insufficiency Current visit: No Status: Chronic Category: Medical Code(s): N28.9 - Disorder of kidney and ureter, unspecified (3) Sepsis Current visit: Yes Status: Acute Qualifiers: Sepsis type: sepsis due to unspecified organism Qualified Code(s): A41.9 - Sepsis, unspecified organism Category: Medical Code(s): A41.9 - Sepsis, unspecified organism Suspect due to urinary tract infection/pyelonephritis. Patient has gram- negative bacteremia as of this morning with positive blood cultures. We will continue IV Levaquin at this time. Once patient afebrile for 24 hours and hemodynamically stable for at least 24 hours we will consider discharge home with continued treatment in the outpatient setting. Sepsis criteria: -Tachycardia, febrile, source with gram-negative bacteremia/pyelonephritis (4) Gram-negative bacteremia Current visit: Yes Status: Acute Category: Medical Code(s): R78.81 - Bacteremia
--- NOTE | 2018-11-11 10:56 | Consult Report ---
*Admission Date: 11/10/18 *Reason for consult:: Left ureteral stone and a solitary kidney *History of present illness: Patient is a 43-year-old white female with a history of nephrolithiasis. She had a right kidney removed due to complications from multiple kidney stones. She was in the emergency room 2 nights ago with left flank pain and a 4 mm stone at the left UVJ was noted. She was admitted for pain control. She does report a fever up to 102. Her white count as of yesterday was 10.1 and her creatinine is 1.1 as of today. She denies any flank pain overnight and is able to make urine. [facility] History Medical History: Reports:: Anxiety Denies:: Cancer, Diabetes Mellitus Type 1, Diabetes Mellitus Type 2, MRSA *Have you ever received a pneumonia vaccine?: No *Have you received a flu vaccine this season?: Yes Other Medical History: Reports: Anemia Laterality Cases: Bilateral: Tonsillectomy Other Surgeries: Yes: Other (right kidney removal) Amputation: No (right kidney removal) Fractures: No - *Social History Smoking Status: Never smoker Alcohol Intake: never *Occupational Status:: employed Housing: house *Travel in the last 8 weeks: None - Psychiatric History Pschychiatric History:: Reports:: Anxiety Family Hx:: No significant family history Review of Systems - *Neurologic Denies abnormal walking, Denies abnormal hearing, Denies behavioral changes, Denies burning sensations, Denies unsteadiness, Denies dizziness Meds Home Medications Medication Instructions Recorded Confirmed Type Estradiol 1 patch TD DIRECTED 07/01/17 11/10/18 History levoFLOXacin [Levaquin 750mg 750 mg PO DAILY 5 Days #5 tab 11/11/18 Rx tablet] Allergies Allergy/AdvReac Type Severity Reaction Status Date / Time Penicillins Allergy Mild Verified 04/22/17 18:01 iodine Allergy Unknown BLISTERING Verified 04/22/17 18:01 WELTS ofloxacin Allergy Unknown Verified 04/22/17 18:01 ADHESIVES Allergy Severe S-BLISTERING Uncoded 04/07/17 14:39 JAMILA Exam Vital signs and Labs for Last 24 Hours: Temp Pulse Resp BP Pulse Ox 98.3 F 56 L 17 93/62 L 98 11/11/18 07:58 11/11/18 07:58 11/11/18 07:58 11/11/18 07:58 11/11/18 08:00 Laboratory Results - last 24 hr 11/10/18 16:20: WBC 10.1, RBC 4.24, Hgb 12.8, Hct 40.0, MCV 94.5, MCH 30.1, MCHC 31.9, RDW 12.9, Plt Count 238 D, MPV 7.6, Neut % (Auto) 87.7 H, Lymph % (Auto) 7.9 L, [place] % (Auto) 3.2, Eos % (Auto) 0.9, Baso % (Auto) 0.3, Neut # (Auto) 8.9 H, Lymph # (Auto) 0.8, [place] # (Auto) 0.3, Eos # (Auto) 0.1, Baso # (Auto) 0.0, Total Counted 100, Neutrophils % (Manual) 82 H, Band Neutrophils % 12.0 H, Lymphocytes % (Manual) 4 L, Monocytes % (Manual) 2, Platelet Estimate Normal, RBC Morphology Normal 11/10/18 16:20: Sodium 137, Potassium 3.4 L, Chloride 103, Carbon Dioxide 23, Anion Gap 14.4, BUN 14 D, Creatinine 1.12 H D, Estimated Creat Clear 86, Estimated GFR 53 L, Est GFR ( Amer) 65 D, Glucose 93, Calcium 8.9 11/10/18 16:55: Lactate 0.6 11/10/18 17:40: Urine Color Yellow, Urine Appearance Clear, Urine pH 6.0, Ur Specific [place] 1.010, Urine Protein Negative, Urine Glucose (UA) Negative, Urine Ketones 1+, Urine Blood 2+, Urine Nitrate Positive, Urine Bilirubin Negative, Urine Urobilinogen 0.2, Ur Leukocyte Esterase 1+ A, Urine RBC Occasional, Urine WBC 3-5, Ur Squamous Epith Cells 3-5, Amorphous Sediment 1+, Urine Bacteria 2+ 11/11/18 05:26: WBC 7.5 D, RBC 3.48 L, Hgb 10.6 L D, Hct 32.7 L, MCV 93.9, MCH 30.5, MCHC 32.5, RDW 12.8, Plt Count 218, MPV 8.6, Neut % (Auto) 77.7, Lymph % (Auto) 13.7, [place] % (Auto) 8.1, Eos % (Auto) 0.3, Baso % (Auto) 0.1, Neut # (Auto) 5.8, Lymph # (Auto) 1.0, [place] # (Auto) 0.6, Eos # (Auto) 0.0, Baso # (Auto) 0.0 11/11/18 05:26: Sodium 138, Potassium 3.7, Chloride 107, Carbon Dioxide 24, Anion Gap 10.7, BUN 12, Creatinine 1.10 H, Estimated Creat Clear 87, Estimated GFR 54 L, Est GFR ( Amer) 66, Glucose 97, Calcium 8.1 L, Total Bilirubin 0.4, AST 29 D, ALT 41 D, Alkaline Phosphatase 75, Total Protein 5.7 L D, Albumin 2.4 L, Globulin 3.3 H, Albumin/Globulin Ratio 0.7 L I & O for Last 24 hours: Intake & Output 11/08/18 11/09/18 11/10/18 11/11/18 23:59 23:59 23:59 23:59 Intake Total 120 / 120 2333 / 2333 Output Total 700 / 700 600 / 600 Balance -580 / -580 1733 / 1733 Weight 83.206 kg 83.178 kg Microbiology Reports for the Last 24 Hours: Microbiology 11/10/18 16:55 Blood Blood Culture - Preliminary 11/10/18 16:20 Blood Blood Culture - Preliminary Narrative: Well-nourished white female in no apparent distress Pupils equal round reactive to light Head is normocephalic Neck supple symmetric Abdomen normal visual inspection Normal respiratory effort Alert and oriented x3 Internal Medicine - CN: Reslt - Labs CBC & Chem 7: 11/11/18 05:26 11/11/18 05:26 Labs: Short CBC 11/10/18 11/11/18 Range/Units 16:20 05:26 WBC 10.1 7.5 D (4.8-10.8) K/mm3 Hgb 12.8 10.6 L D (12.2-16.2) g/dL Hct 40.0 32.7 L (37.0-47.0) % Plt Count 238 D 218 (142-424) K/mm3 BMP 11/10/18 11/11/18 16:20 05:26 Sodium 137 138 Potassium 3.4 L 3.7 Chloride 103 107 Carbon Dioxide 23 24 BUN 14 D 12 Creatinine 1.12 H D 1.10 H Glucose 93 97 Calcium 8.9 8.1 L Liver Function 11/11/18 Range/Units 05:26 Total Bilirubin 0.4 (0.2-1.0) mg/dL AST 29 D (15-37) U/L ALT 41 D (12-78) U/L Alkaline Phosphatase 75 (46-116) U/L Albumin 2.4 L (3.4-5.0) gm/dL Urine 11/10/18 Range/Units 17:40 Urine Color Yellow (Yellow) Urine Appearance Clear (Clear) Urine pH 6.0 (5.0-8.5) Ur Specific [place] 1.010 (1.005-1.030) Urine Protein Negative (Negative) Urine Glucose (UA) Negative (Negative) Assessment and Plan (1) Renal colic on left side Current visit: No Status: Resolved Category: Medical Code(s): N23 - Unspe cified renal colic (2) Renal insufficiency Current visit: No Status: Chronic Category: Medical Code(s): N28.9 - Disorder of kidney and ureter, unspecified (3) Sepsis Current visit: Yes Status: Acute Qualifiers: Sepsis type: sepsis due to unspecified organism Qualified Code(s): A41.9 - Sepsis, unspecified organism Category: Medical Code(s): A41.9 - Sepsis, unspecified organism (4) Gram-negative bacteremia Current visit: Yes Status: Acute Category: Medical Code(s): R78.81 - Bacteremia - Assessment and plan all Dx Assessment and Plan for all problems:: 43-year-old white female with a 4 mm left UPJ stone and a solitary kidney. We have discussed options including a trial of passage versus stone extraction. Recommend we proceed with stone extraction to prevent any further colicky episodes and to prevent any renal failure or possible sepsis. She wishes to proceed we will set this up today.
--- NOTE | 2018-11-11 13:17 | Progress Note ---
[facility] Anesthesia Record Part I Intake, IV Amount: 500 Estimated blood loss (mL): 0 Urine output (mL): 0 Blood Pressure: 122/100 SaO2: 95 Pulse Rate: 110 Respiratory Rate: 16 Temperature: 97.7 F Patient is:: Drowsy, Stable Stable to PACU at:: 13:15
--- NOTE | 2018-11-11 13:17 | Operative Note ---
Date of procedure: 11/11/18 Pre-op Diagnosis:: Left ureteral stone Post-op Diagnosis:: Left ureteral stone Procedure performed:: Left ureteroscopy and basket stone extraction Surgeon:: Porfirio Reza MD ASSEMBLY REPAIRER:: Jacky Wheeler Anesthesia: GETA Estimated blood loss (mL): 0 Clinical Note:: 43-year-old white female with a solitary left kidney with a 4 mm left ureteral stone. Operative findings:: Stone in the distal left ureter. Operative note:: Patient taken to the operating room after informed consent was obtained. Taste on the operating room table in the supine position and general anesthesia administered. She was on preoperative IV antibiotics and sequential compression devices were placed. She was then placed into the dorsal lithotomy position and prepped and draped in the standard surgical fashion. A 21 Korean cystoscope passed into the urethra and the bladder without difficulty. The bladder was examined in a systematic fashion and there was no evidence of mucosal abnormalities stones diverticula or trabeculation. The ureteral orifices in their normal anatomic position. A 0.035 sensor guidewire was passed into the left ureteral orifice and it passed easily by a distal stone. The cystoscope then removed and our semirigid ureteroscope was passed into the left ureteral orifice and up to the level of the stone. A 2.4 Korean nitinol stone basket was used to grasp the stone and remove it without difficulty. I took a look back in the ureter after removing the stone and no injury or other stones were noted. The scope removed and the guidewire removed. The bladder was emptied and Urojet placed in the urethra. Patient tolerated the procedure well no complications. Condition: stable Disposition: PACU Specimens:: Left ureteral stone Complications:: None
--- NOTE | 2018-11-11 13:17 | Progress Note ---
[facility] Anesthesia Checklist - Patient Identification Patient Identification: Arm Band - Structural Data Admitted From: Inpatient Planned Operative Procedure/s: cystoscopy, left ureteroscopy with stone extraction Consent for Planned Operative Procedure(s) Verified: Yes Verified Documents: Surgical Consent, History and Physical - NPO Status Verified Time NPO: 00:00 - Additional verifications Anesthesia Reactions: No - Airway Assessment C-Spine Mobility Assessed: Yes (mp2) TMJ Mobility Assessed: Yes Dentition: Good Dentition - Neurological Assessment Level of Consciousness: Awake, Alert - Anesthesia Plan Anesthesia Risk discussed: Yes Anesthesia Plan: Verified ASA Class: II Anesthesia Type: General [facility] History I have reviewed the patient's past medical history: Yes Medical History: Reports:: Anxiety Denies:: Cancer, Diabetes Mellitus Type 1, Diabetes Mellitus Type 2, MRSA *Have you ever received a pneumonia vaccine?: No *Have you received a flu vaccine this season?: Yes Other Medical History: Reports: Anemia Laterality Cases: Bilateral: Tonsillectomy Other Surgeries: Yes: Other (right kidney removal) Amputation: No (right kidney removal) Fractures: No - *Social History Smoking Status: Never smoker Alcohol Intake: never Substance Use Type: denies use *Occupational Status:: employed Housing: house *Travel in the last 8 weeks: None - Psychiatric History Pschychiatric History:: Reports:: Anxiety Family Hx:: No significant family history
--- NOTE | 2018-11-11 13:18 | Progress Note ---
[facility] Anesthesia Record Part II Discharge Time: 13:45 Destination: 2nd floor PACU nurse assessment reviewed?: Yes Patient Condition:: Good Anesthesia Complications:: None Swallowing reflex intact?: Yes Cyanosis?: No
== END 2018-11-12 11:04 | disposition home or self-care (01) | DRG 854 ==
LOC: 2ND 15:53
PROVIDERS: ADMIT Internal Medicine Adolescent Medicine; ATTEND Internal Medicine Adolescent Medicine
CPT/HCPCS: 36415; 74000; 74018; 74430; 80048; 80053; 81001; 82370; 83605; 85007; 85025; 87040; 87077; 87086; 87088; 87186; J1956; J2405

== ENCOUNTER → 2018-12-02 09:22 | Outpatient (CLI) | payer BC, SELFPAY ==
--- NOTE | 2018-12-02 09:25 | XR_ITS ---
PROCEDURE: XR KUB CLINICAL INDICATION: Kidney Stones kidney stones history of cholecystectomy appendectomy and right Kidney removal COMPARISON: ABDPELWO CT abdomen pelvis wo con from 05/12/[address] abdomen pelvis wo con from 11/09/2018 from 11/11/2018 KUB 3 FINDINGS: Gas pattern-The bowel gas pattern is unremarkable. No obvious obstruction. Moderate to generous stool at the right colon and cecum minimal healing gas throughout the remainder of the colon. Clips right upper quadrant from cholecystectomy. Bones well mineralized, with No acute bony anomalies evident. A CT abdomen and pelvis study from 11/09/2018 showed a small of roughly 3 mm calculus at the left UVJ. This is difficult to distinguish from adjacent phleboliths there are numerous phleboliths in the pelvis but if the patient continues to have left ureteral left flank symptoms then and there is a small slightly different calcifications could conceivably reflect a residual calculus at the distal left ureter. . Again it is very difficult to discern from other phleboliths and calcifications Upper abdomen unremarkable but normal gas pattern. IMPRESSION: . Numerous phleboliths in the pelvic basin. Because of these is difficult to discern any unique or definitive distal ureteral calculus (as seen at the UVJ 11/09/2018 CT) but never there is 1 slightly different calcification left pelvis towards region of the left UVJ, which could reflect a tiny less than 3 mm calculus here, if symptoms persist. I would expect a calculus of this small size however to pass through the UVJ by now. Unremarkable bowel gas pattern Cholecystectomy Dictated by: Skip Thompson MD 12/02/2018 15:52 Signed by: <Electronically signed by Skip Thompson MD in [place]> 12/02/2018 15:52
== END ==
PROVIDERS: PCP Internal Medicine Adolescent Medicine; Visit Provider Urology
DX: N20.0 Calculus of kidney (principal)
CPT/HCPCS: 74018

== ENCOUNTER 2019-09-17 14:04 | Emergency (ER) | payer BC, SELFPAY ==
[2019-09-17 14:05] VITALS: BP 111/88; PULSE 64; RESP 19; TEMP 36.8; O2SAT 99; BMI 26.6
[2019-09-17 14:51] LABS: Apearance,Urine Clear (Clear); Blood, Urine Negative (Negative); Color,Urine Dark Yellow (Yellow); Glucose,Urine (UA) Negative (Negative); Ketones,Urine Negative (Negative); PH,Urine 5.5 (5.0-8.5); Protein,Urine Negative (Negative); Specific Gravity, Urine 1.025 (1.005-1.030)
[2019-09-17 14:52] LABS: Bilirubin,Urine Negative (Negative); UTC Leukocyte Esterase,Urine Negative (Negative); UTC Nitrate,Urine Positive (Negative); Urobilinogen,Urine 0.2 EU/dl (0.2)
--- NOTE | 2019-09-17 15:04 | HMH.EDUTC ---
[facility] [place] Disposition Clinical Impression: Stomach problems UTI (urinary tract infection) Qualifiers: Urinary tract infection type: site unspecified Hematuria presence: without hematuria Qualified Code(s): N39.0 - Urinary tract infection, site not specified Disposition: Home, Self-Care Condition on Discharge: Good Instructions: Urinary Tract Infection, Hiatal Hernia, DI for Urinary Tract Infection (UTI), DI for Hiatal Hernia, Nitrofurantoin Additional Instructions: *Increase fluids. Water not Soda or Tea *Start antibiotic immediately and be sure to take as ordered for the FULL length of time although you should start to see improvement over the next 48 hours *Be SURE to follow up anytime for new or worsening symptoms with your family doctor. AND in 48 hours for urine culture results with your family doctor, if you do not have a doctor then you may call back to the [facility] for urine culture results and further treatment. We do recommend that you choose and establish care with a Primary Care Physician. AND follow up with them in 10-14 days to repeat UA to ensure infection is resolved and blood no longer present *Be sure to let your PCP know that we sent urine cultures from the [facility] so they can follow up to ensure that you area the on the correct antibiotic Call your doctor office and make appointment for 48 hours (2 days from today) to follow up and get the results of your urine culture and further treatment Don?t exercise or lie down for 3 or 4 hours after you eat. Avoid acidic foods like orange juice, tomato sauce, and soda. Limit fried and fatty foods, alcohol, vinegar, chocolate, and caffeine. Eat smaller meals. Lift the head of your bed about 6 inches. Don?t wear tight belts or clothes that put pressure on your belly. Lose extra pounds. Don?t smoke. Follow up with family doctor on Thursday for further evaluation and treatment Return if needed Straight to ER if any worsening of symptoms of worsening of abdomen Prescriptions: Famotidine [Acid Cop Breaker] 20 mg PO BID 7 Days #14 tab Transmission Status: Received by [facility] #[id number] Nitrofurantoin Monohyd/M-Cryst [Macrobid 100 mg Capsule] 100 mg PO BID 10 Days #20 cap Transmission Status: Received by [facility] #[id number] Referrals: Chris Duke MD [Primary Care Provider] - As needed Time of Disposition: 15:22 Medical Decision Making - James Inquiry Pt receiving controlled substance: No James was queried for this patient: No Vital Signs: 09/17/19 14:05 09/17/19 15:36 Temperature 98.3 F 98.3 F Temperature Source Oral Oral Pulse Rate 64 Pulse Rate [Radial] 64 Respiratory Rate 19 19 Blood Pressure 111/88 Blood Pressure [Right Arm] 111/88 Blood Pressure Mean [Right Arm] 95 Blood Pressure Source Automatic Cuff Blood Pressure Source [Right Arm] Automatic Cuff Blood Pressure Position Sitting Blood Pressure Position [Right Arm] Sitting 02 Sat by Pulse Oximetry 99 Oxygen Delivery Method Room Air Room Air - Lab Data Lab results reviewed: Yes: I reviewed the patient's lab results. Lab Results 09/17/19 14:35: Urine Color Dark yellow, Urine Appearance Clear, Urine pH 5.5, Ur Specific [place] 1.025, Urine Protein Negative, Urine Glucose (UA) Negative, Urine Ketones Negative, Urine Blood Negative, Urine Nitrate Positive A, Urine Bilirubin Negative, Urine Urobilinogen 0.2, Ur Leukocyte Esterase Negative Orders (Tests/Meds): ED MEDICATIONS Discontinued Medications Generic Name Dose Route Start Last Admin Trade Name Freq PRN Reason Stop Dose Admin Belladonna Alkaloids 60 ml 09/17/19 15:02 09/17/19 15:09 Gi Cocktail 60ml Udc PO 09/17/19 15:03 60 ml ONCE ONE Administration ORDERS Category Date Time Status Urine Culture Stat Micro 09/17/19 14:50 Received - Reevaluation(s) Time: 14:45 Reevaluation #1: Discussed with patient that abdominal pain is not seen and treated in the [facility] that she would have to be transfered to ED
[2019-09-17 15:36] VITALS: BP 111/88; PULSE 64; RESP 19; TEMP 36.8; O2SAT 99
== END 2019-09-17 15:37 | disposition home or self-care (01) ==
PROVIDERS: Emergency Provider Nurse Practitioner; PCP Internal Medicine Adolescent Medicine
DX: N30.00 Acute cystitis without hematuria (principal); F41.9 Anxiety disorder, unspecified; Z88.0 Allergy status to penicillin
CPT/HCPCS: 81003; 87086; 87088; 87186; 99201

== ENCOUNTER → 2019-09-19 17:16 | Outpatient (CLI) | payer BC, SELFPAY ==
--- NOTE | 2019-09-19 17:28 | XR_ITS ---
PROCEDURE: XR ACUTE ABDOMEN SERIES CLINICAL INDICATION: EPIGASTRIC PAIN Pain with nausea COMPARISON: XR KUB from 12/02/2018 FINDINGS: Frontal view of the chest shows no acute finding. Upright and supine views of the abdomen show surgical clips in the right upper quadrant. No intestinal obstruction or free air. There are multiple pelvic phleboliths. Two calcific densities overlie the left superior sacral region and are consistent with phleboliths not significantly changed from 12/02/2018. There is some nonspecific calcification in the right paraspinal region at L1-L2. Suture lines are present in the right lower quadrant. No acute bony findings. IMPRESSION: No acute findings. Dictated by: Fawad Guerrero MD 09/20/2019 07:14 Electronically signed by Fawad Guerrero MD in [place] 09/20/2019 07:14
== END ==
LOC: RAD 17:18
PROVIDERS: PCP Internal Medicine Adolescent Medicine; Visit Provider Internal Medicine Adolescent Medicine
DX: R10.13 Epigastric pain (principal)
CPT/HCPCS: 74021

== ENCOUNTER 2020-08-06 15:37 | Emergency (ER) | payer BC, SELFPAY ==
[2020-08-06 16:06] VITALS: RESP 16; TEMP 36.8; O2SAT 97; BMI 26.6
--- NOTE | 2020-08-06 16:18 | HMH.EDUTC ---
[facility] [place] Clinical Impression: Otitis media Qualifiers: Otitis media type: suppurative Chronicity: acute Laterality: bilateral Recurrence: non-recurrent Spontaneous tympanic membrane rupture: without spontaneous rupture Qualified Code(s): H66.003 - Acute suppurative otitis media without spontaneous rupture of ear drum, bilateral Sinusitis Qualifiers: Sinusitis location: unspecified location Chronicity: acute Recurrence: non-recurrent Qualified Code(s): J01.90 - Acute sinusitis, unspecified Disposition: Home, Self-Care Condition on Discharge: Good Instructions: DI for Sinusitis Additional Instructions: Drink plenty of fluids. Take tylenol for pain or fever. Follow up with your regular doctor. GO TO THE ER FOR ANY WORSENING SYMPTOMS Prescriptions: predniSONE [Deltasone 10mg tablet] 10 mg PO BID 3 Days #6 tab Transmission Status: Received by [facility] #[id number] Benzonatate [Tessalon Perle 100mg Cap] 100 mg PO TIDP PRN #30 cap PRN Reason: Cough Transmission Status: Received by [facility] #[id number] Azithromycin [Z-Santo 250mg Tab*] 250 mg PO UD DOSE PK #6 tab Transmission Status: Received by [facility] #[id number] Referrals: Chris Duke MD [Primary Care Provider] - Time of Disposition: 16:20 Medical Decision Making - Medical Records Medical records reviewed: No: I reviewed the patient's medical records. - James Inquiry Pt receiving controlled substance: No Vital Signs: 08/06/20 16:06 08/06/20 16:27 Temperature 98.3 F 98.3 F Temperature Source Oral Oral Pulse Rate 74 Respiratory Rate 16 16 Blood Pressure 123/86 02 Sat by Pulse Oximetry 97 Oxygen Delivery Method Room Air Room Air [facility] [place] HPI - General Stated complaint: EAR PAIN, HEAD CONGESTION Time Seen by Provider: 08/06/20 16:18 Mode of Arrival: Ambulatory Source of Information: Patient Limitations: No Limitations Description of Symptoms (Recalled from Triage Doc. by RN): sore throat, earache, nasal drainage HEENT Symptoms (Recalled from RN notes): Yes Resp Symptoms (Recalled from RN notes): Yes Skin Symptoms (Recalled from RN notes): No MS Symptoms (Recalled from RN notes): No Functional Status (Recalled from RN notes): na - History of Present Illness Provider Complaint: she states that for the past 2 days, she has had sinus congestion, left ear pain, and a sore throat. She denies any chillling, body aches, n/v/d. - Related Data Home Medications Medication Instructions Recorded Confirmed estradioL [Estradiol (Twice 1 patch TD DIRECTED 07/01/17 12/02/18 Weekly)] Previous Rx's Medication Instructions Recorded Tamsulosin HCl [Flomax 0.4mg 0.4 mg PO HS #30 cap 11/12/18 capsule] svixzlwgetojwca-lmyhovqxncjncni-QA 10 ml PO Q4-6H PRN 7 Days #118 ml 05/01/19 2 mg-30 mg-10 mg/5 mL oral syrup Famotidine [Acid [employer]] 20 mg PO BID 7 Days #14 tab 09/17/19 Nitrofurantoin Monohyd/M-Cryst 100 mg PO BID 10 Days #20 cap 09/17/19 [Macrobid 100 mg Capsule] Azithromycin [Z-Snato 250mg Tab*] 250 mg PO UD DOSE PK #6 tab 08/06/20 Benzonatate [Tessalon Perle 100mg 100 mg PO TIDP PRN #30 cap 08/06/20 Cap] predniSONE [Deltasone 10mg tablet] 10 mg PO BID 3 Days #6 tab 08/06/20 Allergies Allergy/AdvReac Type Severity Reaction Status Date / Time Penicillins Allergy Mild Verified 05/01/19 14:56 iodine Allergy Unknown BLISTERING Verified 05/01/19 14:56 WELTS ofloxacin Allergy Unknown Verified 05/01/19 14:56 ADHESIVES Allergy Severe S-BLISTERING Uncoded 12/02/18 10:17 WELTS - Worker's Comp Is this a Worker's Comp case?: No [facility] History - Hepatitis A Screen Drug use history?: No High risk sexual behaviors?: No History of sexually transmitted infection?: No Currently employed?: No Childcare worker?: No Do you have indoor plumbing?: Yes Do you have electricity?: Yes Attestation statement:: This patient has been screened for Hepatitis A risk factors. I hav
[2020-08-06 16:27] VITALS: BP 123/86; PULSE 74; RESP 16; TEMP 36.8; O2SAT 97
== END 2020-08-06 16:29 | disposition home or self-care (01) ==
PROVIDERS: Emergency Provider Nurse Practitioner Family; PCP Internal Medicine Adolescent Medicine
DX: H66.003 Acute suppurative otitis media without spontaneous rupture of ear drum, bilateral (principal); J01.90 Acute sinusitis, unspecified; F41.9 Anxiety disorder, unspecified; Z88.0 Allergy status to penicillin
CPT/HCPCS: 99202; G0463

== ENCOUNTER → 2020-12-13 08:55 | Outpatient (CLI) | payer BC, SELFPAY ==
--- NOTE | 2020-12-13 09:01 | CT_ITS ---
PROCEDURE: CT ABDOMEN PELVIS WO/W CON CLINICAL INDICATION: ABD PAIN,H/O NEPHROLITHIASIS COMPARISON: CT ABDPELWO CT abdomen pelvis wo con from 10/08/[address] abdomen pelvis wo con from 11/09/2018 TECHNIQUE: IV Contrast: 75ML Isovue 370 Oral Contrast None Axial images obtained with sagittal and coronal reformats. All CT scans at the facility use one or more dose reduction, viz: automated exposure control, ma/kV adjustment per patient size (including targeted exams where dose is matched to indication, i.e. head), or iterative reconstruction technique. FINDINGS: LOWER THORAX: No acute finding ABDOMEN & PELVIS: There is a 12 mm I so density in the lateral aspect of the left hepatic lobe segment 2 which shows filling in on the delayed images suggesting a hemangioma. An additional small hypodensity is present in the right hepatic lobe segment 7 at 4 mm and may be due to small cyst. Along the dome of the liver there is a 9 mm hypodensity which may be due to small cyst there has been a prior cholecystectomy. There is mild biliary ectasia. The spleen, adrenal glands, and pancreas have an unremarkable appearance. There has been a prior right nephrectomy. A 3 mm stone is present in the lower pole of the left kidney. No renal mass evident. No ureteral calculi. There is mild ectasia of the left renal pelvis and calices but no obvious obstructing lesion.. There is a small umbilical hernia containing fat. Prior appendectomy and hysterectomy. There are few colonic diverticula but no evidence of diverticulitis. There are few small mesenteric lymph nodes. No acute bony findings. Small bone island suspected in the left femoral head unchanged IMPRESSION: 1. No acute finding. 2. Prior right nephrectomy. 3. Left nephrolithiasis. No ureteral calculi parent. There is mild ectasia of the left pelvicaliceal system but no obvious obstructing lesions. Dictated by: Fwaad Guerrero MD 12/14/2020 08:34 Fawad Guerrero MD in [place] 12/14/2020 08:34
[2020-12-13 09:48] LABS: Basophils # 0.1 K/mm3 (0-0.2); Basophils % 1.1 % (0.1-2.0); Eosinophils # 0.2 K/mm3 (0.0-0.4); Hematocrit 44.6 % (37.0-47.0); Hemoglobin 14.4 g/dL (12.2-16.2); Lymphocytes # 2.8 K/mm3 (0.7-4.5); Lymphocytes % 46.4 % (10-50); Mean Corpuscular HGB Conc 32.2 g/dL (31.8-35.4); Mean Corpuscular Volume 99.2 fl (81-99); Mean Platelet Volume 7.8 fl (7.4-10.4); Monocytes # 0.3 K/mm3 (0.1-1.0); Monocytes % 5.4 % (1.7-9.3); Neutrophils # 2.7 K/mm3 (1.8-7.8); Neutrophils % 44.1 % (37.0-80.0); Platelet Count 333 K/mm3 (142-424); Red Cell Distribution Width 12.6 % (11.5-17.5)
[2020-12-13 09:52] LABS: Chloride 105 mmol/L (98-107); Potassium 4.8 mmoL/L (3.5-5.1); Sodium 141 mmol/L (136-145)
[2020-12-13 09:55] LABS: Alanine Aminotransferase 17 U/L (12-78); Alkaline Phosphatase 85 U/L (38-126); Anion Gap 14.8 mEq/L (5-15); Aspartate Amino Transferase 29 U/L (14-36); Bilirubin,Total 0.5 mg/dl (0.2-1.3); Blood Urea Nitrogen 28 mg/dl (7-17); Calcium 9.5 mg/dl (8.4-10.2); Carbon Dioxide 26 mmol/L (22.0-30.0); Estimated Glomerular Filt Rate 60 ml/min (>60); GFR (African American) 73 ML/MIN (>60); Glucose 101 mg/dl (74-100)
[2020-12-13 09:56] LABS: Albumin Level 4.6 g/dl (3.5-5.0); Albumin/Globulin Ratio 1.3 (1.1-1.8); Globulin 3.6 g/dL (1.3-3.2); Total Protein,Serum 8.2 g/dl (6.3-8.2)
[2020-12-13 10:27] LABS: Thyroid Stimulating Hormone 1.23 uIU/mL (0.465-4.68)
== END ==
PROVIDERS: PCP Internal Medicine Adolescent Medicine; Visit Provider Internal Medicine Adolescent Medicine
DX: R10.84 Generalized abdominal pain (principal); Z87.442 Personal history of urinary calculi
CPT/HCPCS: 36415; 74178; 80053; 84443; 85025; Q9967

== ENCOUNTER 2021-03-06 16:35 | Emergency (ER) | payer BC, SELFPAY ==
[2021-03-06 16:36] VITALS: BP 123/88; PULSE 100; RESP 16; TEMP 36.6; O2SAT 99; BMI 28.1
--- NOTE | 2021-03-06 16:59 | XR_ITS ---
PROCEDURE: XR CHEST PORTABLE CLINICAL HISTORY: Cough COMPARISON: No exams were available for comparison FINDINGS: The cardiomediastinal silhouette and pulmonary vascularity are within normal limits. The lungs are clear without infiltrates, suspicious nodules, or pleural effusions. No acute bony abnormalities. IMPRESSION: No acute findings. Dictated by: Fawad Guerrero MD 03/07/2021 14:30 Fawad Guerrero MD in [place] 03/07/2021 14:30
--- NOTE | 2021-03-06 17:03 | HMH.EDGENADL ---
ED Disposition Clinical Impression: COVID-19 vaccine administered Disposition: Home, Self-Care Condition on Discharge: Fair Instructions: DI for Shortness of Breath Referrals: Chris Duke MD [Primary Care Provider] - - Critical Care Critical Care Time: No Attestation: On 03/06/21, the high probability of a clinically significant, sudden or life threatening deterioration of the following system(s) required my full and direct attention, intervention and personal management. The time I documented below is in addition to time spent performing reported procedures but includes the following listed in this critical care notation. Medical Decision Making - James Inquiry Pt receiving controlled substance: No Vital Signs: 03/06/21 16:36 Temperature 97.9 F Temperature Source Oral Pulse Rate [Right Radial] 100 H Respiratory Rate 16 Blood Pressure [Right Arm] 123/88 Blood Pressure Mean [Right Arm] 99 Blood Pressure Source [Right Arm] Automatic Cuff Blood Pressure Position [Right Arm] Sitting 02 Sat by Pulse Oximetry 99 Oxygen Delivery Method Room Air - Lab Data Lab results reviewed: Yes: I reviewed the patient's lab results. Lab Results 03/06/21 18:04: WBC 4.8, RBC 4.45, Hgb 13.9, Hct 42.6, MCV 95.7, MCH 31.2, MCHC 32.6, RDW 13.3, Plt Count 356, MPV 8.2, Neut % (Auto) 42.7, Lymph % (Auto) 45.0, [place] % (Auto) 7.6, Eos % (Auto) 2.5, Baso % (Auto) 2.3 H, Neut # (Auto) 2.0, Lymph # (Auto) 2.1, [place] # (Auto) 0.4, Eos # (Auto) 0.1, Baso # (Auto) 0.1 03/06/21 18:04: Sodium 140, Potassium 4.2, Chloride 104, Carbon Dioxide 29, Anion Gap 11.2, BUN 21 H, Creatinine 1.00, Estimated Creat Clear 95, Estimated GFR 60, Est GFR ( Amer) 73, Glucose 91, Calcium 9.2, Total Bilirubin 0.3, AST 38 H, ALT 19, Alkaline Phosphatase 87, Total Protein 7.4, Albumin 4.5, Globulin 2.9, Albumin/Globulin Ratio 1.6 Result diagrams: 03/06/21 18:04 03/06/21 18:04 Orders (Tests/Meds): ED MEDICATIONS Generic Name Dose Route Start Last Admin Trade Name Freq PRN Reason Stop Dose Admin Lactated Ringer's 1,000 mls @ 999 mls/hr 03/06/21 17:00 03/06/21 18:21 Lactated Ringer's 1000 Ml Bag IV 03/06/21 18:00 999 mls/hr .Q1H1M SERGIO Administration Discontinued Medications Generic Name Dose Route Start Last Admin Trade Name Freq PRN Reason Stop Dose Admin Acetaminophen 1,000 mg 03/06/21 16:59 03/06/21 18:20 Acetaminophen 500mg Tab PO 03/06/21 17:00 1,000 mg ONCE ONE Administration Ibuprofen 800 mg 03/06/21 16:59 03/06/21 18:20 Ibuprofen 400 Mg Tablet PO 03/06/21 17:00 800 mg ONCE ONE Administration Ondansetron HCl 4 mg 03/06/21 16:59 03/06/21 18:21 Ondansetron 4mg/2ml Vial IV 03/06/21 17:00 4 mg ONCE ONE Administration ORDERS Category Date Time Status XR chest portable Stat Exams 03/06/21 16:59 Taken Medical Decision Narrative: Is a 45-year-old female with past medical history of a solitary kidney presenting to the ED with shortness of breath. Patient is awake, alert, not in acute distress. Patient is hemodynamically stable, tachycardic, afebrile. Physical exam is remarkable for clear breath sounds bilaterally soft nondistended nontender abdomen. Patient is resting comfortably on room air without any acute respiratory distress. Differential includes but is not limited to next of the Covid vaccine, COVID-19 pneumonia, other viral pneumonia, low concern for bacterial pneumonia, pulmonary embolism. Given this a CBC, CMP, chest x-ray is performed, an EKG was performed. Patient is given IV fluids, Zofran, Tylenol, ibuprofen. His lab work is unremarkable, chest x-ray is without any focal consolidations, no acute pulmonary pathology noted. Patient feels much better after IV fluids, Zofran, Tylenol. Patient is written for Zofran. Patient is given strict return precautions and follow-up instructions. General Adult HPI - General Chief complaint: Shortness of Breath/Dyspnea State
[2021-03-06 18:15] LABS: Basophils # 0.1 K/mm3 (0-0.2); Basophils % 2.3 % (0.1-2.0); Eosinophils # 0.1 K/mm3 (0.0-0.4); Eosinophils % 2.5 % (0.1-12.0); Hematocrit 42.6 % (37.0-47.0); Hemoglobin 13.9 g/dL (12.2-16.2); Lymphocytes # 2.1 K/mm3 (0.7-4.5); Mean Corpuscular HGB Conc 32.6 g/dL (31.8-35.4); Mean Corpuscular Hemoglobin 31.2 pg (27.0-31.2); Mean Corpuscular Volume 95.7 fl (81-99); Mean Platelet Volume 8.2 fl (7.4-10.4); Monocytes # 0.4 K/mm3 (0.1-1.0); Monocytes % 7.6 % (1.7-9.3); Neutrophils % 42.7 % (37.0-80.0); Platelet Count 356 K/mm3 (142-424); Red Blood Count 4.45 M/mm3 (4.20-5.40); Red Cell Distribution Width 13.3 % (11.5-17.5); White Blood Count 4.8 K/mm3 (4.8-10.8)
[2021-03-06 18:22] LABS: Chloride 104 mmol/L (98-107); Potassium 4.2 mmoL/L (3.5-5.1); Sodium 140 mmol/L (136-145)
[2021-03-06 18:24] LABS: Alanine Aminotransferase 19 U/L (12-78); Alkaline Phosphatase 87 U/L (38-126); Aspartate Amino Transferase 38 U/L (14-36); Bilirubin,Total 0.3 mg/dl (0.2-1.3); Blood Urea Nitrogen 21 mg/dl (7-17); Creatinine Clearance Estimated 95 mL/min (50-200); Estimated Glomerular Filt Rate 60 ml/min (>60); GFR (African American) 73 ML/MIN (>60)
[2021-03-06 18:25] LABS: Albumin Level 4.5 g/dl (3.5-5.0); Albumin/Globulin Ratio 1.6 (1.1-1.8); Anion Gap 11.2 mEq/L (5-15); Calcium 9.2 mg/dl (8.4-10.2); Carbon Dioxide 29 mmol/L (22.0-30.0); Globulin 2.9 g/dL (1.3-3.2); Glucose 91 mg/dl (74-100); Total Protein,Serum 7.4 g/dl (6.3-8.2)
--- NOTE | 2021-03-06 18:54 | ECG_ITS ---
APPROVED REPORT Exam: Resting ECG HR:61 bpm ECG Measurements Heart Rate 61 AXES WV 162 P 44 QRSd 84 QRS 11 QT 428 T 19 QTc 430 Conclusion Normal sinus rhythm Low voltage QRS Borderline ECG Electronically signed by : Chris Duke MD 03/07/2021 21:39:07
[2021-03-06 19:45] VITALS: BP 120/78; PULSE 94; RESP 16; TEMP 36.6; O2SAT 99
== END 2021-03-06 19:47 | disposition home or self-care (01) ==
PROVIDERS: Emergency Provider Emergency Medicine; PCP Internal Medicine Adolescent Medicine
DX: R42 Dizziness and giddiness (principal); T50.Z95A Adverse effect of other vaccines and biological substances, initial encounter; Z87.442 Personal history of urinary calculi
CPT/HCPCS: 71045; 80053; 85025; 93005; 96365; 99283; J2405

== ENCOUNTER 2021-08-24 16:44 | Emergency (ER) | payer BC, SELFPAY ==
[2021-08-24 17:23] VITALS: BP 125/93; PULSE 102; RESP 19; TEMP 37.8; O2SAT 99; BMI 28.1
[2021-08-24 17:30] LABS: UTC Influenza A Antigen Negative (Negative)
[2021-08-24 17:31] LABS: UTC Influenza B Antigen Negative (Negative)
[2021-08-24 17:39] LABS: Strep Scrn Group A (Rapid) Negative (Negative)
--- NOTE | 2021-08-24 17:40 | HMH.EDUTC ---
[facility] Disposition Clinical Impression: Bronchitis Pharyngitis Qualifiers: Pharyngitis/tonsillitis etiology: unspecified etiology Qualified Code(s): J02.9 - Acute pharyngitis, unspecified Disposition: Home, Self-Care Condition on Discharge: Good Instructions: DI for Pharyngitis/Tonsillopharyngitis -- Adult Additional Instructions: Drink plenty of fluids. Take tylenol or ibuprofen for pain or fever. Take the medications as directed. Follow up with your regular doctor. GO TO THE ER FOR ANY WORSENING SYMPTOMS Prescriptions: Benzonatate [Benzonatate 100mg cap] 100 mg PO TIDP PRN #30 cap PRN Reason: Cough [facility] methylPREDNISolone [Medrol] 4 mg PO DIRECTED 6 Days #21 packet Transmission Status: [facility] Azithromycin [Z-Santo 250mg Tab*] 250 mg PO UD DOSE PK #6 tab Transmission Status: [facility] Referrals: Chris Duke MD [Primary Care Provider] - Time of Disposition: 18:14 Medical Decision Making - Medical Records Medical records reviewed: No: I reviewed the patient's medical records. - James Inquiry Pt receiving controlled substance: No Vital Signs: 08/24/21 17:23 08/24/21 17:53 Temperature 100.0 F H 100.0 F H Temperature Source Oral Pulse Rate 85 Pulse Rate [Left] 102 H Respiratory Rate 19 19 Blood Pressure 125/80 Blood Pressure [Right Arm] 125/93 H Blood Pressure Mean [Right Arm] 103 02 Sat by Pulse Oximetry 99 - Lab Data Lab results reviewed: Yes: I reviewed the patient's lab results. Lab Results 08/24/21 17:20: Influenza Type A Ag Negative, Influenza Type B Ag Negative 08/24/21 17:21: Group A Strep Rapid Negative Orders (Tests/Meds): ED MEDICATIONS Discontinued Medications Generic Name Dose Route Start Last Admin Trade Name Freq PRN Reason Stop Dose Admin Dexamethasone Sodium Phosphate 8 mg 08/24/21 17:44 08/24/21 17:49 Dexamethasone 4mg/Ml 1ml Vial IM 08/24/21 17:45 8 mg ONCE ONE Administration ORDERS Category Date Time Status Strep Screen Confirmation Stat Micro 08/24/21 17:21 Received [facility] HPI - General Stated complaint: sore throat&drainage Time Seen by Provider: 08/24/21 17:40 Mode of Arrival: Ambulatory Source of Information: Patient Limitations: No Limitations Description of Symptoms (Recalled from Triage Doc. by RN): pt c/o sore throat, drainage, body aches and bilateral ear pain. all symptoms started this AM. HEENT Symptoms (Recalled from RN notes): Yes Resp Symptoms (Recalled from RN notes): Yes Skin Symptoms (Recalled from RN notes): No MS Symptoms (Recalled from RN notes): No Functional Status (Recalled from RN notes): wnl - History of Present Illness Provider Complaint: She states that since early this morning she has had sinus congestion, sore throat, body aches and chills - Related Data Home Medications Medication Instructions Recorded Confirmed estradioL [Estradiol (Twice 1 patch TD DIRECTED 07/01/17 02/07/21 Weekly)] Previous Rx's Medication Instructions Recorded Tamsulosin HCl [Flomax 0.4mg 0.4 mg PO HS #30 cap 11/12/18 capsule] qeckebgfgkzamfk-crkgujfyqzxfrvd-WI 10 ml PO Q4-6H PRN 7 Days #118 ml 05/01/19 2 mg-30 mg-10 mg/5 mL oral syrup Famotidine [Acid Etiology Teacher] 20 mg PO BID 7 Days #14 tab 09/17/19 Nitrofurantoin Monohyd/M-Cryst 100 mg PO BID 10 Days #20 cap 09/17/19 [Macrobid 100 mg Capsule] Azithromycin [Z-Santo 250mg Tab*] 250 mg PO UD DOSE PK #6 tab 08/06/20 Benzonatate [Tessalon Perle 100mg 100 mg PO TIDP PRN #30 cap 08/06/20 Cap] predniSONE [Deltasone 10mg tablet] 10 mg PO BID 3 Days #6 tab 08/06/20 Ondansetron [Zofran 4mg ODT] 4 mg PO TIDP PRN #10 tab 03/06/21 Azithromycin [Z-Santo 250mg Tab*] 250 mg PO UD DOSE PK #6 tab 08/24/21 Benzonatate [Benzonatate 100mg 100 mg PO TIDP PRN #30 cap 08/24/21 cap] methylPREDNISolone [Medrol] 4 mg PO DIRECTED
[2021-08-24 17:53] VITALS: BP 125/80; PULSE 85; RESP 19; TEMP 37.8
== END 2021-08-24 18:21 | disposition home or self-care (01) ==
PROVIDERS: Emergency Provider Nurse Practitioner Family; PCP Internal Medicine Adolescent Medicine
DX: J40 Bronchitis, not specified as acute or chronic (principal); Z88.0 Allergy status to penicillin; Z88.1 Allergy status to other antibiotic agents; Z88.8 Allergy status to other drugs, medicaments and biological substances
CPT/HCPCS: 87430; 87804; 96372; 99212; G0463

== ENCOUNTER 2022-01-05 15:04 | Emergency (ER) | payer BC, SELFPAY ==
--- NOTE | 2022-01-05 15:10 | PC.NURSE ---
1510 ED MD AT BEDSIDE FOR EVALUATION
--- NOTE | 2022-01-05 15:21 | ECG_ITS ---
APPROVED REPORT Exam: Resting ECG HR:75 bpm ECG Measurements Heart Rate 75 AXES VA 166 P 69 QRSd 85 QRS 53 QT 366 T 44 QTc 395 Conclusion SINUS RHYTHM NORMAL ECG UNCONFIRMED REPORT Electronically signed by : Chris Duke MD 01/06/2022 15:12:56
--- NOTE | 2022-01-05 15:21 | HMH.EDGENADL ---
Discharge Plan Disposition Patient Disposition: Home, Self-Care Condition: Good Prescriptions Prescriptions: New prednisone 20 mg tablet 20 mg PO BID Qty: 6 0RF famotidine [Pepcid] 20 mg tablet 20 mg PO BID Qty: 6 0RF epinephrine [EpiPen 2-Santo] 0.3 mg/0.3 mL auto-injector 0.3 mg IM Q10M PRN (Reason: anaphylaxis) Qty: 2 0RF Rx Instructions: for 2 doses No Action juluuhpvtrkqgky-uuuvcbrwb-RG 2-30-10 mg/5 mL syrup 10 ml PO Q4-6H PRN (Reason: cough and congestion) 7 Days Qty: 118 0RF estradiol 1 EACH patch semiweekly 1 patch TD DIRECTED Label Comments: APPLY 1 PATCH TWICE WEEKLY.REMOVE OLD PATCH. tamsulosin 0.4 MG capsule 0.4 mg PO HS Qty: 30 0RF famotidine 20 MG tablet 20 mg PO BID 7 Days Qty: 14 0RF nitrofurantoin monohyd/m-cryst 100 MG capsule 100 mg PO BID 10 Days Qty: 20 0RF azithromycin 250 MG tablet 250 mg PO UD DOSE PK Qty: 6 0RF Rx Instructions: Take two (2) tablets today, then one (1) tablet days #2 thru #5 benzonatate 100 MG capsule 100 mg PO TIDP PRN (Reason: Cough) Qty: 30 0RF prednisone 10 MG tablet 10 mg PO BID 3 Days Qty: 6 0RF ondansetron 4 MG tablet,disintegrating 4 mg PO TIDP PRN (Reason: Nausea) Qty: 10 0RF azithromycin 250 MG tablet 250 mg PO UD DOSE PK Qty: 6 0RF Rx Instructions: Take two (2) tablets today, then one (1) tablet days #2 thru #5 benzonatate 100 MG capsule 100 mg PO TIDP PRN (Reason: Cough) Qty: 30 0RF methylprednisolone 4 MG tablets,dose pack 4 mg PO DIRECTED 6 Days Qty: 21 0RF Referrals Follow up/Referrals: Chris Duke MD [Primary Care Provider] - See instructions Activity Restrictions/Add. Instructions Additional Instructions/Restrictions: Take ixvs-fmy-edwvrzs Benadryl 25 mg every 6 hours for 3 days. Prednisone and Pepcid for 3 days as prescribed. EpiPen refill provided for use as needed in the future. Additional instructions for ALLERGIC REACTION: See your physician as soon as possible for further evaluation. Return immediately if severe intolerable rash or itching, trouble breathing, or faintness. Clinical Impressions Clinical Impression: Allergic reaction, Accidental bee sting Instructions Patient Instructions: DI for Insect Bites and Stings, DI for General Allergic Reactions Discharge ED Provider: James Castro General Adult HPI General Chief complaint: Shortness of Breath/Dyspnea Stated complaint: Stung bby bee,throat closing hand swelling Time Seen by Provider: 01/05/22 15:10 History of Present Illness HPI narrative: States that 30 minutes ago she was stung by a bee on her right hand. 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 She says that she is currently experiencing a sore throat, shortness of breath, heaviness in her chest, feeling hot all over and just not feeling well. No rash or hives. She has used an EpiPen in the past for allergic reactions to bee stings and penicillin, but does not have a current EpiPen prescription. She says that her current symptoms are typical of previous reactions. She does not have any known cardiac disease. Related Data Home Medications Medication Instructions Recorded Confirmed estradiol 0.1 mg/24 hr semiweekly 1 patch TD DIRECTED HORMONE 07/01/17 02/07/21 transdermal patch REPLACEMENT Previous Rx's Medication Instructions Recorded tamsulosin 0.4 mg capsule 0.4 mg PO HS #30 caps 11/12/18 wzxgszlsilddjmn-sxxuedhjeichuvd-HV 10 ml PO Q4-6H PRN cough and 05/01/19 2 mg-30 mg-10 mg/5 mL oral syrup congestion 7 days #118 mL famotidine 20 mg tablet 20 mg PO BID 7 days #14 tabs 09/17/19 nitrofurantoin 100 mg PO BID 10 days #20 caps 09/17/19 monohydrate/macrocrystals 100 mg capsule azithromycin 250 mg tablet 250 mg PO UD DOSE PK #6 tabs 08/06/20 benzonatate 100 mg capsule 100 mg PO TIDP PRN Cough #30 caps 08/06/20 prednisone 10 mg tablet 10 mg PO BID 3 days #6 tabs 08/06/20 ondansetron 4 mg disint
[2022-01-05 15:24] VITALS: BP 152/100; PULSE 80; RESP 22; TEMP 36.7; O2SAT 98; BMI 25.8
[2022-01-05 16:00] VITALS: BP 121/76; PULSE 64; RESP 18; O2SAT 100
--- NOTE | 2022-01-05 16:17 | PC.NURSE ---
ROUNDED ON PT, PT SLEEPING SOUNDLY. NO DISTRESS NOTED. FAMILY AT BEDSIDE
[2022-01-05 16:30] VITALS: BP 112/70; PULSE 68; RESP 18; O2SAT 100
[2022-01-05 17:00] VITALS: BP 109/67; PULSE 64; RESP 20; O2SAT 100
[2022-01-05 17:30] VITALS: BP 116/68; PULSE 63; RESP 20; O2SAT 99
--- NOTE | 2022-01-05 17:43 | PC.NURSE ---
ED MD AT BEDSIDE TO REEVALUATE PT
[2022-01-05 18:51] VITALS: BP 118/74; PULSE 78; RESP 16; TEMP 36.7; O2SAT 100
== END 2022-01-05 18:55 | disposition home or self-care (01) ==
LOC: UTC 15:06 → ER 15:14
PROVIDERS: Emergency Provider Emergency Medicine; PCP Internal Medicine Adolescent Medicine
DX: T63.441A Toxic effect of venom of bees, accidental (unintentional), initial encounter (principal); Z88.0 Allergy status to penicillin; Z88.1 Allergy status to other antibiotic agents; Z88.8 Allergy status to other drugs, medicaments and biological substances; G51.0 Bell's palsy
CPT/HCPCS: 93005; 96365; 96372; 96375; 99284

== ENCOUNTER → 2022-02-06 09:57 | Outpatient (CLI) | payer BC, SELFPAY ==
--- NOTE | 2022-02-06 10:00 | MM_ITS ---
PROCEDURE INFORMATION: Exam: Bilateral Screening 3D Mammography Exam date and time: 02/06/2022 10:02 AM Age: 46 years old Clinical indication: Screening examination TECHNIQUE: Imaging protocol: Bilateral Screening tomosynthesis and 2D mammography including computer-aided detection (CAD) when performed. COMPARISON: No relevant prior studies available. Baseline FINDINGS: MAMMOGRAPHY: Breast composition: The breasts are heterogeneously dense, which may obscure small masses. Mass: None. Architectural distortion: None. Calcifications: No suspicious calcifications. Asymmetric density: None. Skin thickening: None. Axillary adenopathy: None. IMPRESSION: No mammographic evidence of malignancy. Annual screening is recommended unless otherwise clinically indicated. ASSESSMENT: BI-RADS Category 1: Negative
== END ==
PROVIDERS: PCP Internal Medicine Adolescent Medicine; Visit Provider Obstetrics & Gynecology
DX: Z12.31 Encounter for screening mammogram for malignant neoplasm of breast (principal)
CPT/HCPCS: 77063; 77067

== ENCOUNTER 2022-07-15 12:20 | Emergency (ER) | payer BC, SELFPAY ==
[2022-07-15] VITALS (7 sets, daily range): BP systolic 109–138; BP diastolic 73–97; PULSE 53–86; RESP 18; TEMP 36.8; O2SAT 95–99; BMI 27.3
--- NOTE | 2022-07-15 12:17 | ECG_ITS ---
APPROVED REPORT Exam: Resting ECG HR:65 bpm ECG Measurements Heart Rate [address] 150 P 43 QRSd 93 QRS 21 QT 419 T 15 QTc 430 Conclusion SINUS RHYTHM NORMAL ECG UNCONFIRMED REPORT Electronically signed by : Crhis Duke MD 07/16/2022 01:40:24
--- NOTE | 2022-07-15 12:29 | XR_ITS ---
FINAL REPORT CLINICAL HISTORY: CHEST PAIN FINDINGS: A portable view of the chest was obtained. Comparison is made to a prior exam dated 02/2021. Cardiac and mediastinal silhouettes are within normal limits. There is evidence of old granulomatous disease. The lungs are otherwise clear. There is no pleural effusion or pneumothorax. IMPRESSION: No acute process on this portable exam. Reviewed, Interpreted and Dictated by Mary Chris MD Transcribed by Hilario Avila Authenticated and [facility]
[2022-07-15 12:42] LABS: Basophils # 0.1 K/mm3 (0-0.2); Basophils % 2.3 % (0.1-2.0); Eosinophils # 0.1 K/mm3 (0.0-0.4); Hematocrit 43.4 % (37.0-47.0); Lymphocytes # 3.2 K/mm3 (0.7-4.5); Mean Corpuscular HGB Conc 32.2 g/dL (31.8-35.4); Mean Corpuscular Volume 96.2 fl (81-99); Mean Platelet Volume 8.3 fl (7.4-10.4); Monocytes # 0.4 K/mm3 (0.1-1.0); Monocytes % 6.1 % (1.7-9.3); Neutrophils # 2.3 K/mm3 (1.8-7.8); Neutrophils % 37.6 % (37.0-80.0); Platelet Count 350 K/mm3 (142-424); Red Blood Count 4.51 M/mm3 (4.20-5.40); Red Cell Distribution Width 13.1 % (11.5-17.5); White Blood Count 6.2 K/mm3 (4.8-10.8)
[2022-07-15 12:46] LABS: Alanine Aminotransferase 20 U/L (12-78); Albumin Level 4.6 g/dl (3.5-5.0); Albumin/Globulin Ratio 1.5 (1.1-1.8); Alkaline Phosphatase 100 U/L (38-126); Anion Gap 12.1 mEq/L (5-15); Aspartate Amino Transferase 31 U/L (14-36); Bilirubin,Total 0.7 mg/dl (0.2-1.3); Blood Urea Nitrogen 19 mg/dl (7-17); Carbon Dioxide 26 mmol/L (22.0-30.0); Chloride 105 mmol/L (98-107); Creatinine Clearance Estimated 102 mL/min (50-200); Estimated Glomerular Filt Rate 68 ml/min (>60); GFR (African American) 82 ML/MIN (>60); Globulin 3.1 g/dL (1.3-3.2); Glucose 87 mg/dl (74-100); Potassium 4.1 mmoL/L (3.5-5.1); Sodium 139 mmol/L (136-145); Total Protein,Serum 7.7 g/dl (6.3-8.2)
[2022-07-15 12:52] LABS: MANUAL DIFFERENTIAL MANUAL DIFFERENTIAL (MANUAL DIFF)
[2022-07-15 13:00] LABS: Troponin I < 0.01 ng/ml (0.00-0.034)
--- NOTE | 2022-07-15 13:00 | PC.NURSE ---
DR BHATIA AT BEDSIDE
[2022-07-15 13:09] LABS: Eosinophils % 1 % (0-3); Lymphocytes % 64 % (10-50); Monocytes % 3 % (2-9); Neutrophils % 32 % (42-76); Platelet Estimate Normal; RBC Morphology Normal; Total Cells Counted 100
--- NOTE | 2022-07-15 13:21 | HMH.EDGENADL ---
Discharge Plan Disposition Patient Disposition: Home, Self-Care Condition: Good Prescriptions Prescriptions: No Action gabapentin 300 mg capsule 300 mg PO HS Qty: 30 5RF famotidine [Pepcid] 20 mg tablet 20 mg PO BID Qty: 6 0RF epinephrine [EpiPen 2-Santo] 0.3 mg/0.3 mL auto-injector 0.3 mg IM Q10M PRN (Reason: anaphylaxis) Qty: 2 0RF Rx Instructions: for 2 doses ondansetron 4 MG tablet,disintegrating 4 mg PO TIDP PRN (Reason: Nausea) Qty: 10 0RF Referrals Follow up/Referrals: Chris Duke MD [Primary Care Provider] - See instructions Activity Restrictions/Add. Instructions Additional Instructions/Restrictions: Additional instructions for CHEST PAIN: See your physician as soon as possible for further evaluation. Return immediately if worsening chest pain, vomiting, shortness of breath, fever, coughing of blood. Clinical Impressions Clinical Impression: Atypical chest pain Instructions Patient Instructions: DI for Atypical Chest Pain Discharge ED Provider: James Castro General Adult HPI General Chief complaint: Chest Pain Stated complaint: CHEST PAIN Time Seen by Provider: 07/15/22 13:03 Mode of Arrival: Ambulatory Limitations: No Limitations Description of Symptoms (Recalled from ER Triage Doc. by RN): PT REPORTS CHEST PAIN THAT BEGAN LAST NIGHT, RADIATES TO LEFT SHOULDER. REPORTS PAIN WORSE WITH DEEP BREATHING History of Present Illness HPI narrative: Patient states that she has chest discomfort in her anterior chest since last night associated with shortness of breath, intermittent radiation to the left shoulder. Symptoms have been constant ever since onset last night. Denies nausea or diaphoresis. Chest discomfort worsens with deep breath. States that for the past few weeks she has had dizziness, headaches, swelling of hands and feet, worse since Thursday 4 days ago. No history of any significant cardiac or pulmonary conditions. She only has 1 kidney. She has had a hysterectomy for endometriosis. She is not on hormone replacement therapy. No recent travel, surgeries, hospitalizations. She does not have diabetes, hypertension, hyperlipidemia. She is a non-smoker no hemoptysis. No URI symptoms. No fever or cough. She thought her symptoms might be related to anxiety but says that she took an anxiety pill last night and it did not help Related Data Previous Rx's Medication Instructions Recorded ondansetron 4 mg disintegrating 4 mg PO TIDP PRN Nausea #10 tabs 03/06/21 tablet epinephrine 0.3 mg/0.3 mL 0.3 mg (0.3 mL) IM Q10M PRN 01/05/22 injection, auto-injector (EpiPen anaphylaxis #2 ea 2-Santo) famotidine 20 mg tablet (Pepcid) 20 mg PO BID #6 tabs 01/05/22 gabapentin 300 mg capsule 300 mg PO HS #30 caps 02/14/22 Allergies Allergy/AdvReac Type Severity Reaction Status Date / Time venom-wasp Allergy Severe Anaphylaxis Verified 02/14/22 10:05 Penicillins Allergy Mild Verified 02/14/22 10:05 iodine Allergy Unknown BLISTERING Verified 02/14/22 10:05 WELTS ofloxacin Allergy Unknown Verified 02/14/22 10:05 ADHESIVES Allergy Severe S-BLISTERING Uncoded 02/14/22 10:05 [facility] Disclaimer: The information contained in this section may have been updated after the patient was seen, as this information can be updated by other users. Medical History (Updated 07/15/22 @ 16:55 by James Castro MD) Allergic reaction Anxiety Gunn's palsy Calculus of kidney delivery delivered COVID-19 vaccine administered Hot flashes due to surgical menopause Insomnia Renal colic on left side SIRS (systemic inflammatory response syndrome) Surgical History (Updated 07/15/22 @ 12:33 by Katrina Patel RN) History of laparoscopic appendectomy History of nephrectomy, right History of salpingo-oophorectomy History of tonsillectomy History of total vaginal hysterectomy (TVH) Hx laparoscopic cholecystectomy Family History (Reviewed 02/14/22 @ 1
[2022-07-15 13:36] LABS: D-Dimer 0.85 ug/mL (0.0-0.5)
--- NOTE | 2022-07-15 14:07 | CT_ITS ---
FINAL REPORT TECHNIQUE: Axial imaging of the chest is obtained after the administration of contrast. 3-D MIP reformatted images were also obtained and reviewed per PE protocol. This study was performed with techniques to keep radiation doses as low as reasonably achievable (ALARA). Individualized dose reduction techniques using automated exposure control or adjustment of mA and/or kV according to the patient's size were employed. CLINICAL HISTORY: soa, cp, elev d-dimer FINDINGS: The pulmonary arteries are well filled. There is no evidence of pulmonary embolus. There is no aortic dissection or intimal flap. There is no mediastinal, hilar, or axillary lymphadenopathy. The lungs are clear. There is no pleural or pericardial effusion. Limited evaluation of the upper abdomen is without acute abnormality. There is no acute osseous abnormality. IMPRESSION: No evidence of pulmonary embolism or aortic dissection. Reviewed, Interpreted and Dictated by Mary Chris MD Transcribed by Leonora Munoz Authenticated and [facility] [place] [place]
--- NOTE | 2022-07-15 14:21 | PC.NURSE ---
PT TO CT
--- NOTE | 2022-07-15 14:36 | PC.NURSE ---
PT RETURNED FROM CT
--- NOTE | 2022-07-15 14:45 | PC.NURSE ---
PT UPDATED AT THIS TIME. WARM BLANKET PROVIDED. CALL LIGHT WITHIN REACH
--- NOTE | 2022-07-15 14:56 | PC.NURSE ---
MD ramirez pt is requesting pain medicine
--- NOTE | 2022-07-15 15:10 | PC.NURSE ---
Leonora brown rounded on patient
[2022-07-15 15:43] LABS: Troponin I < 0.01 ng/ml (0.00-0.034)
--- NOTE | 2022-07-15 16:50 | PC.NURSE ---
DR BHATIA AT BEDSIDE TO REEVALUATE AND UPDATE PT
== END 2022-07-15 17:02 | disposition home or self-care (01) ==
PROVIDERS: Emergency Provider Emergency Medicine; PCP Internal Medicine Adolescent Medicine
DX: R07.9 Chest pain, unspecified (principal); R06.02 Shortness of breath
CPT/HCPCS: 36415; 71045; 71275; 80053; 84484; 85007; 85025; 85378; 93005; 96374; 96375; 99285; J2405; Q9967

== ENCOUNTER → 2022-07-18 17:28 | Outpatient (CLI) | payer BC, SELFPAY ==
[2022-07-18 18:28] LABS: Magnesium 2.2 mg/dl (1.6-2.3)
[2022-07-18 19:20] LABS: 25-OH Vitamin D, Total 18.9 ng/mL (30-100); Vitamin B12 354 pg/mL (239-931)
== END ==
PROVIDERS: PCP Nurse Practitioner Family; Visit Provider Nurse Practitioner Family
DX: R00.2 Palpitations (principal); E53.8 Deficiency of other specified B group vitamins; E55.9 Vitamin D deficiency, unspecified
CPT/HCPCS: 36415; 82306; 82607; 83735; 84443; 93225; 93226

== ENCOUNTER → 2022-08-11 13:26 | Outpatient (CLI) | payer BC, SELFPAY | PROVIDERS: PCP Nurse Practitioner Family; Visit Provider Nurse Practitioner Family | DX: R06.02 Shortness of breath (principal) | CPT/HCPCS: 93306 ==

== ENCOUNTER → 2022-09-25 11:45 | Outpatient (CLI) | payer BC, SELFPAY ==
[2022-09-25 14:27] LABS: Adenovirus F 40/41, stool Not Detected (NotDetected); Astrovirus Not Detected (NotDetected); Campylobacter Not Detected (NotDetected); Cryptosporidium Not Detected (NotDetected); Cyclospora Cayetanesis Not Detected (NotDetected); Entamoeba histolytica Not Detected (NotDetected); Enteroaggregative E coli Not Detected (NotDetected); Enteropathogenic E coli Not Detected (NotDetected); Enterotoxigenic E coli Not Detected (NotDetected); Giardia lamblia Not Detected (NotDetected); Plesimonas Shigalloides, PCR Not Detected (NotDetected); Rotavirus A Not Detected (NotDetected); Salmonella, PCR Not Detected (NotDetected); Sapovirus Not Detected (NotDetected); Shiga-like toxin E coli Not Detected (NotDetected); Shigella Enterovasive E coli Not Detected (NotDetected); Vibrio Cholerae Not Detected (NotDetected); Vibrio, PCR Not Detected (NotDetected); Yersinia Entercolitica, PCR Not Detected (NotDetected)
[2022-09-26 08:54] LABS: Clostridium Difficile A/B, PCR Detected (NotDetected); Norovirus Detected (NotDetected)
== END ==
LOC: LAB 11:47
PROVIDERS: PCP Internal Medicine Adolescent Medicine; Visit Provider Nurse Practitioner Family
DX: K52.9 Noninfective gastroenteritis and colitis, unspecified (principal); A04.72 Enterocolitis due to Clostridium difficile, not specified as recurrent; B34.1 Enterovirus infection, unspecified
CPT/HCPCS: 87507; 87635; C9803; U0003; U0005

== ENCOUNTER 2022-09-27 09:53 | Emergency (ER) | payer BC, SELFPAY ==
--- NOTE | 2022-09-27 10:01 | HMH.EDNVD ---
Discharge Plan Disposition Patient Disposition: Home, Self-Care Prescriptions Prescriptions: No Action gabapentin 300 mg capsule 300 mg PO HS Qty: 30 5RF famotidine [Pepcid] 20 mg tablet 20 mg PO BID Qty: 6 0RF epinephrine [EpiPen 2-Santo] 0.3 mg/0.3 mL auto-injector 0.3 mg IM Q10M PRN (Reason: anaphylaxis) Qty: 2 0RF Rx Instructions: for 2 doses ondansetron 4 MG tablet,disintegrating 4 mg PO TIDP PRN (Reason: Nausea) Qty: 10 0RF Referrals Follow up/Referrals: Chris Duke MD [Primary Care Provider] - See instructions Activity Restrictions/Add. Instructions Additional Instructions/Restrictions: Take all medications as prescribed. Your work-up in the emergency department today did not reveal any life-threatening or dangerous conditions. I have prescribed you some nausea medicine which has been sent to the local [facility] pharmacy. Please take the medications that will be delivered to your house today for C. difficile as prescribed. Stick with a clear liquid diet for the next few days. Return to the emergency department immediately if you feel worse in any way. Keep all follow-up appointments as scheduled. Clinical Impressions Clinical Impression: Gastroenteritis, C. difficile colitis, Acute gastroenteropathy due to Norovirus Instructions Patient Instructions: DI for Diarrhea and Traveler's Diarrhea -- Adult, DI for Nausea -- Adult, DI for Clostridioides difficile Infection Discharge ED Provider: Radha Cedillo Nausea/Vomiting/Diarrhea HPI General Chief complaint: Nausea/Vomiting/Diarrhea Stated complaint: Vomiting diarrhea chills low body temp Time Seen by Provider: 09/27/22 10:01 Source of Information: Patient History of Present Illness HPI Narrative: The patient presents to the emergency department complaining of vomiting and diarrhea. She was recently diagnosed with C. difficile. Her antibiotics are to be delivered at home today. She has not begun her antibiotics yet. Related Data Previous Rx's Medication Instructions Recorded ondansetron 4 mg disintegrating 4 mg PO TIDP PRN Nausea #10 tabs 03/06/21 tablet epinephrine 0.3 mg/0.3 mL 0.3 mg (0.3 mL) IM Q10M PRN 01/05/22 injection, auto-injector (EpiPen anaphylaxis #2 ea 2-Santo) famotidine 20 mg tablet (Pepcid) 20 mg PO BID #6 tabs 01/05/22 gabapentin 300 mg capsule 300 mg PO HS #30 caps 02/14/22 Allergies Allergy/AdvReac Type Severity Reaction Status Date / Time venom-wasp Allergy Severe Anaphylaxis Verified 02/14/22 10:05 Penicillins Allergy Mild Verified 02/14/22 10:05 iodine Allergy Unknown BLISTERING Verified 02/14/22 10:05 WELTS ofloxacin Allergy Unknown Verified 02/14/22 10:05 ADHESIVES Allergy Severe S-BLISTERING Uncoded 02/14/22 10:05 WELTS PFSH [facility] Disclaimer: The information contained in this section may have been updated after the patient was seen, as this information can be updated by other users. Medical History (Updated 09/27/22 @ 11:55 by Radha Cedillo MD) Allergic reaction Anxiety Gunn's palsy Calculus of kidney delivery delivered COVID-19 vaccine administered Hot flashes due to surgical menopause Insomnia Renal colic on left side SIRS (systemic inflammatory response syndrome) Surgical History (Updated 07/15/22 @ 12:33 by Katrina Patel RN) History of laparoscopic appendectomy History of nephrectomy, right History of salpingo-oophorectomy History of tonsillectomy History of total vaginal hysterectomy (TVH) Hx laparoscopic cholecystectomy Family History Other No significant family history Social History (Updated 07/15/22 @ 12:33 by Katrina Patel RN) Smoking Status: Never smoker alcohol intake: current substance use type: denies use current occupational status: employed Travel in the last 8 weeks: None household members: spouse and family housing: house ROS Obtained: Yes A
[2022-09-27 10:16] VITALS: BP 158/81; PULSE 77; RESP 20; TEMP 36.4; O2SAT 97; BMI 27.3
[2022-09-27 10:21] LABS: Basophils # 0.1 K/mm3 (0-0.2); Basophils % 1.3 % (0.1-2.0); Eosinophils # 0.1 K/mm3 (0.0-0.4); Eosinophils % 2.3 % (0.1-12.0); Hematocrit 42.7 % (37.0-47.0); Hemoglobin 13.9 g/dL (12.2-16.2); Lymphocytes # 2.7 K/mm3 (0.7-4.5); Lymphocytes % 53.7 % (10-50); Mean Corpuscular HGB Conc 32.6 g/dL (31.8-35.4); Mean Corpuscular Hemoglobin 30.7 pg (27.0-31.2); Mean Corpuscular Volume 94.2 fl (81-99); Mean Platelet Volume 8.2 fl (7.4-10.4); Monocytes # 0.2 K/mm3 (0.1-1.0); Monocytes % 4.7 % (1.7-9.3); Neutrophils # 1.9 K/mm3 (1.8-7.8); Platelet Count 365 K/mm3 (142-424); Red Blood Count 4.53 M/mm3 (4.20-5.40); Red Cell Distribution Width 12.9 % (11.5-17.5); White Blood Count 5.1 K/mm3 (4.8-10.8)
[2022-09-27 10:23] LABS: Chloride 103 mmol/L (98-107); Potassium 3.7 mmoL/L (3.5-5.1); Sodium 142 mmol/L (136-145)
[2022-09-27 10:25] LABS: Blood Urea Nitrogen 11 mg/dl (7-17); Creatinine Clearance Estimated 92 mL/min (50-200); Estimated Glomerular Filt Rate 60 ml/min (>60); GFR (African American) 73 ML/MIN (>60); MANUAL DIFFERENTIAL MANUAL DIFFERENTIAL (MANUAL DIFF)
[2022-09-27 10:26] LABS: Alanine Aminotransferase 26 U/L (12-78); Albumin Level 4.7 g/dl (3.5-5.0); Albumin/Globulin Ratio 1.4 (1.1-1.8); Alkaline Phosphatase 98 U/L (38-126); Anion Gap 14.7 mEq/L (5-15); Aspartate Amino Transferase 40 U/L (14-36); Bilirubin,Total 0.6 mg/dl (0.2-1.3); Calcium 9.4 mg/dl (8.4-10.2); Carbon Dioxide 28 mmol/L (22.0-30.0); Globulin 3.4 g/dL (1.3-3.2); Glucose 98 mg/dl (74-100); Lipase 123 U/L (23-300); Total Protein,Serum 8.1 g/dl (6.3-8.2)
[2022-09-27 10:30] VITALS: BP 121/71; PULSE 66; O2SAT 99
[2022-09-27 11:00] VITALS: BP 112/79; PULSE 61; O2SAT 99
[2022-09-27 11:20] LABS: Lymphocytes % 68 % (10-50); Monocytes % 3 % (2-9); Neutrophils % 29 % (42-76); Total Cells Counted 100
[2022-09-27 11:21] LABS: Platelet Estimate Normal; RBC Morphology Normal
[2022-09-27 11:30] VITALS: BP 103/75
[2022-09-27 12:08] VITALS: BP 101/66; PULSE 58; RESP 20; TEMP 36.6; O2SAT 97
== END 2022-09-27 12:09 | disposition home or self-care (01) ==
PROVIDERS: Emergency Provider Emergency Medicine; PCP Internal Medicine Adolescent Medicine
DX: A04.72 Enterocolitis due to Clostridium difficile, not specified as recurrent (principal); A08.11 Acute gastroenteropathy due to Norwalk agent; F41.9 Anxiety disorder, unspecified
CPT/HCPCS: 80053; 83690; 85007; 85025; 96361; 96374; 99284; J2405

== ENCOUNTER → 2022-10-13 12:08 | Outpatient (CLI) | payer BC, SELFPAY ==
[2022-10-13 14:14] LABS: Basophils % 0.7 % (0.1-2.0); Eosinophils # 0.1 K/mm3 (0.0-0.4); Eosinophils % 1.2 % (0.1-12.0); Hemoglobin 13.8 g/dL (12.2-16.2); Lymphocytes # 2.1 K/mm3 (0.7-4.5); Lymphocytes % 35.5 % (10-50); Mean Corpuscular HGB Conc 31.3 g/dL (31.8-35.4); Mean Corpuscular Hemoglobin 30.9 pg (27.0-31.2); Mean Corpuscular Volume 98.7 fl (81-99); Mean Platelet Volume 9.6 fl (7.4-10.4); Monocytes # 0.3 K/mm3 (0.1-1.0); Monocytes % 5.6 % (1.7-9.3); Neutrophils # 3.3 K/mm3 (1.8-7.8); Platelet Count 293 K/mm3 (142-424); Red Blood Count 4.46 M/mm3 (4.20-5.40); Red Cell Distribution Width 12.8 % (11.5-17.5); White Blood Count 5.8 K/mm3 (4.8-10.8)
[2022-10-13 16:05] LABS: Alanine Aminotransferase 19 U/L (12-78); Albumin Level 4.7 g/dl (3.5-5.0); Albumin/Globulin Ratio 1.6 (1.1-1.8); Alkaline Phosphatase 76 U/L (38-126); Anion Gap 15.6 mEq/L (5-15); Aspartate Amino Transferase 33 U/L (14-36); Bilirubin,Total 0.5 mg/dl (0.2-1.3); Blood Urea Nitrogen 17 mg/dl (7-17); Calcium 9.5 mg/dl (8.4-10.2); Carbon Dioxide 27 mmol/L (22.0-30.0); Chloride 104 mmol/L (98-107); Estimated Glomerular Filt Rate 68 ml/min (>60); GFR (African American) 82 ML/MIN (>60); Globulin 2.9 g/dL (1.3-3.2); Glucose 85 mg/dl (74-100); Potassium 5.6 mmoL/L (3.5-5.1); Sodium 141 mmol/L (136-145); Total Protein,Serum 7.6 g/dl (6.3-8.2)
== END ==
PROVIDERS: PCP Internal Medicine Adolescent Medicine; Visit Provider Nurse Practitioner Family
DX: A04.72 Enterocolitis due to Clostridium difficile, not specified as recurrent (principal); A08.11 Acute gastroenteropathy due to Norwalk agent; K52.9 Noninfective gastroenteritis and colitis, unspecified; R14.0 Abdominal distension (gaseous); R07.89 Other chest pain; K30 Functional dyspepsia
CPT/HCPCS: 36415; 80053; 85025; 87493

== ENCOUNTER 2022-10-17 11:47 | Outpatient (CLI) | payer BC, SELFPAY ==
[2022-10-17 11:54] VITALS: BMI 26.4
[2022-10-17 12:00] VITALS: BP 116/74; PULSE 73; RESP 20; TEMP 36.9; O2SAT 95
[2022-10-17 12:09] LABS: Basophils % 0.7 % (0.1-2.0); Eosinophils # 0.2 K/mm3 (0.0-0.4); Eosinophils % 3.8 % (0.1-12.0); Hematocrit 43.4 % (37.0-47.0); Hemoglobin 13.7 g/dL (12.2-16.2); Lymphocytes # 2.1 K/mm3 (0.7-4.5); Mean Corpuscular HGB Conc 31.5 g/dL (31.8-35.4); Mean Corpuscular Hemoglobin 30.5 pg (27.0-31.2); Mean Platelet Volume 8.5 fl (7.4-10.4); Monocytes # 0.3 K/mm3 (0.1-1.0); Monocytes % 5.3 % (1.7-9.3); Neutrophils % 53.2 % (37.0-80.0); Platelet Count 309 K/mm3 (142-424); Red Blood Count 4.48 M/mm3 (4.20-5.40); White Blood Count 5.6 K/mm3 (4.8-10.8)
[2022-10-17 12:53] LABS: Chloride 104 mmol/L (98-107); Sodium 139 mmol/L (136-145)
[2022-10-17 12:54] LABS: Potassium 4.2 mmoL/L (3.5-5.1)
[2022-10-17 12:56] LABS: Alanine Aminotransferase 24 U/L (12-78); Albumin Level 4.7 g/dl (3.5-5.0); Albumin/Globulin Ratio 1.5 (1.1-1.8); Alkaline Phosphatase 83 U/L (38-126); Anion Gap 16.2 mEq/L (5-15); Aspartate Amino Transferase 52 U/L (14-36); Bilirubin,Total 0.8 mg/dl (0.2-1.3); Blood Urea Nitrogen 12 mg/dl (7-17); Calcium 9.4 mg/dl (8.4-10.2); Carbon Dioxide 23 mmol/L (22.0-30.0); Creatinine Clearance Estimated 89 mL/min (50-200); Estimated Glomerular Filt Rate 60 ml/min (>60); GFR (African American) 73 ML/MIN (>60); Globulin 3.2 g/dL (1.3-3.2); Glucose 85 mg/dl (74-100); Total Protein,Serum 7.9 g/dl (6.3-8.2)
[2022-10-17 12:57] LABS: Magnesium 2.2 mg/dl (1.6-2.3)
[2022-10-17 13:10] VITALS: BP 113/82; PULSE 73; RESP 20; TEMP 36.9; O2SAT 98
[2022-10-17 13:27] LABS: Microscopic, Urine URINE MICROSCOPIC (MICROSCOPIC)
[2022-10-17 13:28] LABS: Appearance,Urine CLEAR (Clear); Bilirubin,Urine Negative (Negative); Blood, Urine Negative (Negative); Color,Urine YELLOW (Yellow); Glucose,Urine (UA) Negative (Negative); Ketones,Urine Negative (Negative); Leukocyte Esterase,Urine 3+ (Negative); Nitrate,Urine Negative (Negative); Protein,Urine Negative (Negative); Specific Gravity, Urine <= 1.005 (1.005-1.030); Urobilinogen,Urine 0.2 EU/dl (0.2)
[2022-10-17 13:41] LABS: Bacteria,Urine 1+ /lpf; RBC,Urine Occasional #/hpf (0-3)
== END 2022-10-17 13:15 | disposition home or self-care (01) ==
LOC: INF 11:49
PROVIDERS: PCP Nurse Practitioner Family; Visit Provider Nurse Practitioner Family
DX: A08.11 Acute gastroenteropathy due to Norwalk agent (principal); A04.72 Enterocolitis due to Clostridium difficile, not specified as recurrent; E86.0 Dehydration; N39.0 Urinary tract infection, site not specified
CPT/HCPCS: 80053; 81001; 83735; 85025; 87086; 96360

== ENCOUNTER → 2022-10-20 08:47 | Outpatient (CLI) | payer BC, SELFPAY ==
--- NOTE | 2022-10-20 | CA_ITS ---
APPROVED REPORT Exam: Exercise Treadmill Technologist: Reyna Dang, Ht: 5 ft 8 in Wt: 175 lbs BSA: 1.93 m2 HR: 68 bpm BP: 125/84 mmHg Rhythm: SR Medical History Medications: Omeprazole,,,,, Buspirone,,,,, Tizanidine,,,,, ONdansetron,,,,, Epinephrine,,,,, Stress Test Details Test: Sebastian HR Resting HR: 70 bpm Max Heart Rate (APMHR): 175 bpm Max HR Achieved: 160 bpm Target HR (85% APMHR): 149 bpm % of APMHR: 91 Recovery HR: 80 bpm HR response to stress: Normal HR response to stress BP Resting BP: 125.0/84 mmHg Max BP: 145/80 mmHg Recovery BP: 128.0/77.0 mmHg BP response to stress: Normal blood pressure response to stress. ECG Resting ECG: Normal sinus rhythm Stress ECG: No change Arrhythmia: None Recovery ECG: No change Recovery Arrhythmia: None Clinical Exercise duration: 06:39 min Highest Stage Achieved: Exercise capacity: 7.0 METs Overall Exercise Capacity for Age: Average Stress ECG Conclusion THE PATIENT WAS ABLE TO EXERCISE FOR 6 MINUTES, 39 SECONDS, ACHIEVING 7.0 METS. SHE HAD AN AVERAGE EXERCISE CAPACITY COMPARED TO AGE AND SEX MATCHED PEERS. SHE HAD NORMAL HR AND BP RESPONSE TO EXERCISE. MAX HR: 160 % OF PM: 91 MAX BP: 145/80 METS: 7.0 TEST STOPPED DUE TO: DYSPNEA, LIGHT HEADEDNESS AT BASELINE, ECG DEMONSTRATED NORMAL SINUS RHYTHM, NO ST CHANGES. AT PEAK STRESS, THERE WERE NO NO NEW ST CHANGES. NO ARRHYTHMIAS WERE PRESENT. CONCLUSION AVERAGE EXERCISE CAPACITY. NORMAL EXERCISE STRESS TEST. Test Summary REST . . . . . . . Standing REST . . . . . . . Sitting REST 03:38 0.0 0.0 70 . 125/ 84 . . Stage 1 01:00 10.0 1.7 106 . . . . Stage 1 02:00 10.0 1.7 113 . . . . Stage 1 03:00 10.0 1.7 122 . 140/ 75 . . Stage 2 01:00 12.0 2.5 133 . . . . Stage 2 02:00 12.0 2.5 144 . 145/ 80 . . Stage 2 03:00 12.0 2.5 149 . 145/ 80 . . Stage 3 00:39 14.0 3.4 160 . . . Stop exercise at 06:39 RECOVERY 01:00 0.0 0.0 128 . . . . RECOVERY 02:00 0.0 0.0 98 . 115/ 91 . . RECOVERY 03:00 0.0 0.0 87 . 136/ 83 . . RECOVERY 04:00 0.0 0.0 86 . 128/ 77 . . RECOVERY 04:04 0.0 0.0 86 . 128/ 77 . . Electronically signed by : Elisabeth Oneal, 10/23/2022 22:50:02
== END ==
PROVIDERS: PCP Internal Medicine Adolescent Medicine; Visit Provider Nurse Practitioner Family
DX: R07.89 Other chest pain (principal); R00.2 Palpitations
CPT/HCPCS: 93017; 93270

== ENCOUNTER 2022-11-17 13:43 | Emergency (ER) | payer BC, SELFPAY ==
[2022-11-17 13:44] VITALS: BP 127/89; PULSE 68; RESP 18; TEMP 36.7; O2SAT 98; BMI 26.4
[2022-11-17 14:00] VITALS: BP 138/99; PULSE 80; O2SAT 99
[2022-11-17 14:02] LABS: Microscopic, Urine URINE MICROSCOPIC (MICROSCOPIC)
[2022-11-17 14:27] LABS: Appearance,Urine CLEAR (Clear); Bilirubin,Urine Negative (Negative); Blood, Urine 3+ (Negative); Color,Urine YELLOW (Yellow); Glucose,Urine (UA) Negative (Negative); Ketones,Urine Negative (Negative); Leukocyte Esterase,Urine Negative (Negative); Nitrate,Urine Negative (Negative); Protein,Urine Negative (Negative); Urobilinogen,Urine 0.2 EU/dl (0.2)
[2022-11-17 14:30] VITALS: BP 119/80; PULSE 63; O2SAT 95
--- NOTE | 2022-11-17 14:35 | HMH.EDGENADL ---
Discharge Plan Disposition Patient Disposition: Home, Self-Care Prescriptions Prescriptions: No Action tizanidine 2 mg tablet 2 mg PO HS PRN (Reason: MUSCLE RELAXER) Patient Comments: TAKE 1 TABLET BY MOUTH EVERY 8 HOURS NEEDED FOR MUSCLE SPASM omeprazole 40 mg capsule,delayed release(DR/EC) 40 mg PO DAILY Patient Comments: TAKE 1 CAPSULE BY MOUTH ONCE DAILY 15-30 MINUTES PRIOR TO DINNER buspirone 10 mg tablet 5 mg PO HS Patient Comments: PLEASE TAKE 1/2 TABLET BY MOUTH DAILY AT BEDTIME FOR 5-7 DAYS AND THEN 1 TABLET DAILY AT BEDTIME FOR 5-7, THEN 1 TABLET TWICE DAILY THEREAFTER epinephrine [EpiPen 2-Santo] 0.3 mg/0.3 mL auto-injector 0.3 mg IM Q10M PRN (Reason: anaphylaxis) Qty: 2 0RF Rx Instructions: for 2 doses ondansetron 4 MG tablet,disintegrating 4 mg PO TIDP PRN (Reason: Nausea) Qty: 10 0RF Referrals Follow up/Referrals: Chris Duke MD [Primary Care Provider] - See instructions Activity Restrictions/Add. Instructions Additional Instructions/Restrictions: There was hematuria on her urinalysis but no other evidence of infection. There is no hydronephrosis noted on your ultrasound. It is possible you have a nonobstructing kidney stone but given your significant radiation exposure in the past we opted to not do another CT scan today. Your creatinine is normal and there is no evidence of any sepsis. Please follow-up closely with Dr. Alas return to the emergency department as instructed. We discussed empiric antibiotic coverage for possible urinary tract infection however given her recent C. difficile recovery and the lack of objective findings to suggest an infection we are holding off on this currently. Clinical Impressions Clinical Impression: Hematuria Instructions Patient Instructions: DI for Urinary Tract Infection (UTI), DI for Urinary Tract Infection in Children Discharge ED Provider: Ghanshyam Mercedes General Adult HPI <Ghanshyam Mercedes MD - Last Filed: 11/18/22 07:09> General Chief complaint: Urogenital-Female Stated complaint: blood in urine, abd pain Time Seen by Provider: 11/17/22 13:49 Mode of Arrival: Ambulatory Source of Information: Patient Limitations: No Limitations Description of Symptoms (Recalled from ER Triage Doc. by RN): Patient reports blood in urine and left sided flank pain since yesterday. History of Present Illness HPI narrative: Is a 47-year-old female with history of right nephrectomy, total hysterectomy/salpingo-oophorectomy, multiple UTIs, recent diagnosis of C. difficile colitis (not currently having diarrhea) presenting with multiple complaints. Patient states that she started having abdominal cramping that started in her left flank and radiated forward to her left lower quadrant. Mild to moderate in intensity and is intermittent. Associated with nausea without vomiting, hematuria without dysuria. Denies fevers, chills, abnormal vaginal discharge or bleeding, blood per rectum, inability to tolerate p.o. intake, or any other concerns. Related Data Home Medications Medication Instructions Recorded Confirmed buspirone 10 mg tablet 5 mg PO HS MOOD 10/15/22 10/17/22 omeprazole 40 mg capsule,delayed 40 mg PO DAILY STOMACH 10/15/22 10/17/22 release tizanidine 2 mg tablet 2 mg PO HS PRN MUSCLE RELAXER 10/15/22 10/17/22 Previous Rx's Medication Instructions Recorded ondansetron 4 mg disintegrating 4 mg PO TIDP PRN Nausea #10 tabs 03/06/21 tablet epinephrine 0.3 mg/0.3 mL 0.3 mg (0.3 mL) IM Q10M PRN 01/05/22 injection, auto-injector (EpiPen anaphylaxis #2 ea 2-Santo) Allergies Allergy/AdvReac Type Severity Reaction Status Date / Time venom-wasp Allergy Severe Anaphylaxis Verified 10/15/22 10:29 Penicillins Allergy Mild Verified 10/15/22 10:29 iodine Allergy Unknown BLISTERING Verified 10/15/22 10:29 WELTS ofloxacin Allergy Unknown Verified 10/15/22 10:29 ADHESIVES Allergy Severe S-BLISTERING Uncoded 10/15
--- NOTE | 2022-11-17 14:36 | US_ITS ---
FINAL REPORT TECHNIQUE: Ultrasound images of the kidneys and bladder were obtained. CLINICAL HISTORY: single L kidney. cramping, pain, hematuria FINDINGS: The right kidney is surgically absent. The left kidney measures 12 cm in length. It is normal in echogenicity. There is no hydronephrosis. Flow is identified. The urinary bladder is unremarkable. IMPRESSION: Status post right nephrectomy. Otherwise, unremarkable exam. Reviewed, Interpreted and Dictated by Robles Herrmann III, MD Transcribed by Elaine Montaño Authenticated and [facility]
[2022-11-17 14:52] LABS: Chloride 105 mmol/L (98-107); Sodium 140 mmol/L (136-145)
[2022-11-17 14:54] LABS: Blood Urea Nitrogen 13 mg/dl (7-17)
[2022-11-17 14:55] LABS: Alanine Aminotransferase 21 U/L (12-78); Albumin Level 4.4 g/dl (3.5-5.0); Albumin/Globulin Ratio 1.4 (1.1-1.8); Alkaline Phosphatase 96 U/L (38-126); Aspartate Amino Transferase 35 U/L (14-36); Bilirubin,Total 0.8 mg/dl (0.2-1.3); Calcium 9.7 mg/dl (8.4-10.2); Carbon Dioxide 28 mmol/L (22.0-30.0); Creatinine Clearance Estimated 97 mL/min (50-200); Estimated Glomerular Filt Rate 67 ml/min (>60); GFR (African American) 82 ML/MIN (>60); Globulin 3.1 g/dL (1.3-3.2); Glucose 90 mg/dl (74-100); Lipase 86 U/L (23-300); Total Protein,Serum 7.5 g/dl (6.3-8.2)
[2022-11-17 14:57] LABS: Basophils % 0.6 % (0.1-2.0); Eosinophils # 0.2 K/mm3 (0.0-0.4); Eosinophils % 2.5 % (0.1-12.0); Hemoglobin 13.2 g/dL (12.2-16.2); Lymphocytes # 2.7 K/mm3 (0.7-4.5); Lymphocytes % 44.7 % (10-50); Mean Corpuscular HGB Conc 32.3 g/dL (31.8-35.4); Mean Corpuscular Hemoglobin 30.7 pg (27.0-31.2); Mean Corpuscular Volume 95.2 fl (81-99); Mean Platelet Volume 8.8 fl (7.4-10.4); Monocytes # 0.4 K/mm3 (0.1-1.0); Monocytes % 5.9 % (1.7-9.3); Neutrophils # 2.8 K/mm3 (1.8-7.8); Neutrophils % 46.2 % (37.0-80.0); Platelet Count 330 K/mm3 (142-424); Red Blood Count 4.31 M/mm3 (4.20-5.40)
[2022-11-17 15:00] VITALS: BP 120/79; PULSE 65; O2SAT 96
--- NOTE | 2022-11-17 15:19 | PC.NURSE ---
NURSE VALLEJO ROUNDED ON PT
[2022-11-17 15:21] LABS: Squamous Epithelial Cell,Urine Occasional #/hpf (0-5)
[2022-11-17 16:00] VITALS: BP 124/78; PULSE 79; RESP 18; TEMP 36.9; O2SAT 99
== END 2022-11-17 16:01 | disposition home or self-care (01) ==
PROVIDERS: Emergency Provider Emergency Medicine; PCP Internal Medicine Adolescent Medicine
DX: R10.32 Left lower quadrant pain (principal); R31.9 Hematuria, unspecified; F41.9 Anxiety disorder, unspecified; G51.0 Bell's palsy
CPT/HCPCS: 76770; 80053; 81001; 83690; 85025; 96374; 99285; J0131

== ENCOUNTER 2022-11-19 07:11 | Emergency (ER) | payer BC, SELFPAY ==
[2022-11-19 07:12] VITALS: BP 137/80; PULSE 65; RESP 20; TEMP 36.6; O2SAT 94; BMI 25.0
--- NOTE | 2022-11-19 07:13 | CT_ITS ---
FINAL REPORT CLINICAL HISTORY: inability to urinate, concern for stone COMPARISON: 12/13/2020 FINDINGS: Axial CT images of the abdomen and pelvis were obtained without intravenous contrast. Coronal and sagittal reformatted images were also obtained.This study was performed with techniques to keep radiation doses as low as reasonably achievable (ALARA). Individualized dose reduction techniques using automated exposure control or adjustment of mA and/or kV according to the patient's size were employed. Abdomen: There is mild atelectasis in the lung bases. The patients right kidney has been removed surgically. There is a nonobstructing left lower pole renal stone measuring less than 3 mm in size, stable since the prior CT of 2020. There is mild left hydronephrosis and hydroureter. The liver, spleen and pancreas have an unremarkable, unenhanced appearance. No mass or adenopathy is seen. No inflammatory process is identified. Pelvis: Images of the pelvis reveal a 4 mm presumed stone in the dependent portion of the urinary bladder that may represent either a passed stone or a small bladder stone. This was not seen on the prior CT. The appendix is not well visualized on this exam. No mass or abnormal fluid collection is identified. IMPRESSION: 4 mm presumed stone in the dependent portion of the urinary bladder that may represent either a passed kidney stone or a small bladder stone. This is new since the prior CT of 2020. Prior right nephrectomy. Left kidney nonobstructing stone, stable since 2020. There is mild left hydronephrosis and hydroureter present. Reviewed, Interpreted and Dictated by Robles Herrmann III, MD Transcribed by Almaz Staley Authenticated and [facility]
--- NOTE | 2022-11-19 07:19 | HMH.EDGENADL ---
Discharge Plan Disposition Patient Disposition: Xfer Short-Term Hosp Chief Complaint: Abdominal Pain Prescriptions Prescriptions: No Action tizanidine 2 mg tablet 2 mg PO HS PRN (Reason: MUSCLE RELAXER) Patient Comments: TAKE 1 TABLET BY MOUTH EVERY 8 HOURS NEEDED FOR MUSCLE SPASM omeprazole 40 mg capsule,delayed release(DR/EC) 40 mg PO DAILY Patient Comments: TAKE 1 CAPSULE BY MOUTH ONCE DAILY 15-30 MINUTES PRIOR TO DINNER buspirone 10 mg tablet 5 mg PO HS Patient Comments: PLEASE TAKE 1/2 TABLET BY MOUTH DAILY AT BEDTIME FOR 5-7 DAYS AND THEN 1 TABLET DAILY AT BEDTIME FOR 5-7, THEN 1 TABLET TWICE DAILY THEREAFTER epinephrine [EpiPen 2-Santo] 0.3 mg/0.3 mL auto-injector 0.3 mg IM Q10M PRN (Reason: anaphylaxis) Qty: 2 0RF Rx Instructions: for 2 doses ondansetron 4 MG tablet,disintegrating 4 mg PO TIDP PRN (Reason: Nausea) Qty: 10 0RF Referrals Follow up/Referrals: Chris Duke MD [Primary Care Provider] - See instructions Clinical Impressions Clinical Impression: Acute unilateral obstructive uropathy, Ureterolithiasis, SHANNAN (acute kidney injury) Stand Alone Forms Stand Alone Forms: Transfer Record - ED Instructions Patient Instructions: DI for Acute Abdominal Pain Discharge ED Provider: Gregorio Lam General Adult HPI General Chief complaint: Abdominal Pain Stated complaint: unable to use the restroom, kidney pain Time Seen by Provider: 11/19/22 07:12 History of Present Illness HPI narrative: This 47-year-old female status post right nephrectomy with solitary left kidney and numerous kidney stones presenting with multiple complaints. I was present when patient presented just a couple days prior to this visit. She was complaining of left flank pain that radiated to her lower left abdomen. Labs concerning for only hematuria and given patient's symptoms, likely nephrolithiasis. Ultrasound without signs of hydronephrosis, so patient opted out of CT scan and home management trying to pass stone. Patient states that she last urinated around 11 PM on 11/18. She woke up around 3 AM on 11/19 with acute pain in her left flank radiating to her left lower abdomen. Did not try to urinate until today just before arrival and was unable to urinate, so came to the ER for further evaluation. No fevers, chills, bowel symptoms, nausea or vomiting, just 10 out of 10, radiating pain from left flank to left lower abdomen. Related Data Home Medications Medication Instructions Recorded Confirmed buspirone 10 mg tablet 5 mg PO HS MOOD 10/15/22 10/17/22 omeprazole 40 mg capsule,delayed 40 mg PO DAILY STOMACH 10/15/22 10/17/22 release tizanidine 2 mg tablet 2 mg PO HS PRN MUSCLE RELAXER 10/15/22 10/17/22 Previous Rx's Medication Instructions Recorded ondansetron 4 mg disintegrating 4 mg PO TIDP PRN Nausea #10 tabs 03/06/21 tablet epinephrine 0.3 mg/0.3 mL 0.3 mg (0.3 mL) IM Q10M PRN 01/05/22 injection, auto-injector (EpiPen anaphylaxis #2 ea 2-Santo) Allergies Allergy/AdvReac Type Severity Reaction Status Date / Time venom-wasp Allergy Severe Anaphylaxis Verified 10/15/22 10:29 Penicillins Allergy Mild Verified 10/15/22 10:29 iodine Allergy Unknown BLISTERING Verified 10/15/22 10:29 JAMILA ofloxacin Allergy Unknown Verified 10/15/22 10:29 ADHESIVES Allergy Severe S-BLISTERING Uncoded 10/15/22 10:[address] [facility] Disclaimer: The information contained in this section may have been updated after the patient was seen, as this information can be updated by other users. Medical History (Updated 11/19/22 @ 10:23 by Ghanshyam Mercedes MD) Allergic reaction Anxiety Gunn's palsy Calculus of kidney delivery delivered COVID-19 vaccine administered Hot flashes due to surgical menopause Insomnia Renal colic on left side SIRS (systemic inflammatory response syndrome) SOB (shortness of breath) on exertion Surgical History (Reviewed
[2022-11-19 07:38] LABS: Basophils # 0.1 K/mm3 (0-0.2); Basophils % 1.1 % (0.1-2.0); Eosinophils # 0.2 K/mm3 (0.0-0.4); Eosinophils % 2.1 % (0.1-12.0); Hematocrit 43.6 % (37.0-47.0); Hemoglobin 13.5 g/dL (12.2-16.2); Lymphocytes # 3.2 K/mm3 (0.7-4.5); Lymphocytes % 42.8 % (10-50); Mean Corpuscular HGB Conc 30.9 g/dL (31.8-35.4); Mean Corpuscular Hemoglobin 29.8 pg (27.0-31.2); Mean Corpuscular Volume 96.4 fl (81-99); Mean Platelet Volume 8.4 fl (7.4-10.4); Monocytes # 0.5 K/mm3 (0.1-1.0); Monocytes % 6.6 % (1.7-9.3); Neutrophils # 3.5 K/mm3 (1.8-7.8); Neutrophils % 47.4 % (37.0-80.0); Platelet Count 368 K/mm3 (142-424); Red Blood Count 4.52 M/mm3 (4.20-5.40); Red Cell Distribution Width 13.1 % (11.5-17.5); White Blood Count 7.5 K/mm3 (4.8-10.8)
[2022-11-19 07:41] LABS: Chloride 102 mmol/L (98-107); Sodium 141 mmol/L (136-145)
[2022-11-19 07:42] LABS: Potassium 3.6 mmoL/L (3.5-5.1)
[2022-11-19 07:44] LABS: Alanine Aminotransferase 20 U/L (12-78); Albumin Level 4.6 g/dl (3.5-5.0); Albumin/Globulin Ratio 1.4 (1.1-1.8); Alkaline Phosphatase 99 U/L (38-126); Anion Gap 13.6 mEq/L (5-15); Aspartate Amino Transferase 29 U/L (14-36); Bilirubin,Total 0.5 mg/dl (0.2-1.3); Blood Urea Nitrogen 21 mg/dl (7-17); Carbon Dioxide 29 mmol/L (22.0-30.0); Estimated Glomerular Filt Rate 40 ml/min (>60); GFR (African American) 49 ML/MIN (>60); Globulin 3.4 g/dL (1.3-3.2)
[2022-11-19 07:45] LABS: Glucose 121 mg/dl (74-100)
[2022-11-19 08:00] VITALS: BP 137/83; PULSE 62; O2SAT 99
[2022-11-19 08:30] VITALS: BP 115/68; PULSE 65; O2SAT 98
--- NOTE | 2022-11-19 08:54 | PC.NURSE ---
PT TO CT
--- NOTE | 2022-11-19 09:14 | PC.NURSE ---
called [facility] to speak with Urology per ER doctor. Provided necessary information and advised they would call us back
[2022-11-19 09:26] LABS: Microscopic, Urine URINE MICROSCOPIC (MICROSCOPIC)
[2022-11-19 09:28] LABS: Appearance,Urine CLEAR (Clear); Bilirubin,Urine Negative (Negative); Blood, Urine 3+ (Negative); Color,Urine YELLOW (Yellow); Glucose,Urine (UA) Negative (Negative); Ketones,Urine Negative (Negative); Leukocyte Esterase,Urine Negative (Negative); Nitrate,Urine Negative (Negative); Protein,Urine Negative (Negative); Specific Gravity, Urine 1.015 (1.005-1.030); Urobilinogen,Urine 0.2 EU/dl (0.2)
--- NOTE | 2022-11-19 09:40 | PC.NURSE ---
called [facility] back and they were paging Urology again as we we speaking. advised as soon as they hear from them they will be calling us back
[2022-11-19 09:42] LABS: Bacteria,Urine 2+ /lpf; Mucus,Urine 1+ /lpf; RBC,Urine 20-50 #/hpf (0-3); Squamous Epithelial Cell,Urine Occasional #/hpf (0-5)
[2022-11-19 10:00] VITALS: BP 108/71; PULSE 68; O2SAT 98
--- NOTE | 2022-11-19 10:01 | PC.NURSE ---
Hospitalist called from [facility] to speak [facility] ER Doctor due to the Urologist was in surgery
--- NOTE | 2022-11-19 10:07 | PC.NURSE ---
DR NAVA SPEAKING WITH DR MONTGOMERY AT [facility] FOR TRANSFER
--- NOTE | 2022-11-19 10:11 | PC.NURSE ---
DR. Mercedes at [facility]
--- NOTE | 2022-11-19 10:14 | PC.NURSE ---
Rounded on patient; no needs at this time. call jaquez within reach
--- NOTE | 2022-11-19 10:20 | PC.NURSE ---
called [facility] for transport of this pt going to [facility].
[2022-11-19 11:04] VITALS: BP 127/81; PULSE 61; RESP 20; TEMP 36.8; O2SAT 97
== END 2022-11-19 11:06 | disposition short-term general hospital (02) ==
PROVIDERS: Emergency Medicine; Emergency Provider Emergency Medicine; PCP Internal Medicine Adolescent Medicine
DX: N17.9 Acute kidney failure, unspecified (principal); N13.9 Obstructive and reflux uropathy, unspecified; N20.1 Calculus of ureter; F41.9 Anxiety disorder, unspecified; G51.0 Bell's palsy
CPT/HCPCS: 74176; 80053; 81001; 85025; 87086; 96361; 96374; 96375; 99285; J0131; J2405

== ENCOUNTER → 2022-12-10 12:33 | Outpatient (CLI) | payer BC, SELFPAY ==
[2022-12-10 13:48] LABS: Alanine Aminotransferase 17 U/L (12-78); Albumin Level 4.4 g/dl (3.5-5.0); Albumin/Globulin Ratio 1.5 (1.1-1.8); Alkaline Phosphatase 89 U/L (38-126); Anion Gap 12.3 mEq/L (5-15); Aspartate Amino Transferase 25 U/L (14-36); Bilirubin,Total 0.8 mg/dl (0.2-1.3); Blood Urea Nitrogen 15 mg/dl (7-17); Calcium 9.6 mg/dl (8.4-10.2); Carbon Dioxide 30 mmol/L (22.0-30.0); Chloride 103 mmol/L (98-107); Chol/HDL Ratio 3.4 (1-3.5); Cholesterol 225 mg/dl (140-200); Estimated Glomerular Filt Rate 60 ml/min (>60); GFR (African American) 72 ML/MIN (>60); Globulin 2.9 g/dL (1.3-3.2); Glucose 85 mg/dl (74-100); HDL Cholesterol 67 mg/dl (40-60); Potassium 4.3 mmoL/L (3.5-5.1); Sodium 141 mmol/L (136-145); Total Protein,Serum 7.3 g/dl (6.3-8.2); Triglycerides 87 mg/dl (30-150); VLDL Cholesterol 17 mg/dL (0-40)
[2022-12-10 13:59] LABS: Direct LDL Cholesterol 108.38 mg/dL (100-129)
== END ==
PROVIDERS: PCP Nurse Practitioner Family; Visit Provider Nurse Practitioner Family
DX: Z00.00 Encounter for general adult medical examination without abnormal findings (principal); Z79.899 Other long term (current) drug therapy
CPT/HCPCS: 36415; 80053; 80061

== ENCOUNTER → 2022-12-24 14:20 | Outpatient (CLI) | payer BC, SELFPAY | PROVIDERS: PCP Nurse Practitioner Family; Visit Provider Physician Assistant | DX: G47.30 Sleep apnea, unspecified (principal); R40.0 Somnolence | CPT/HCPCS: G0399 ==

== ENCOUNTER → 2023-01-04 17:34 | Outpatient (CLI) | payer BC, SELFPAY ==
[2023-01-09 00:05] LABS: Pancreatic Elastase, Fecal 378 (>200)
== END ==
PROVIDERS: PCP Internal Medicine Gastroenterology; Visit Provider Internal Medicine Gastroenterology
DX: R19.7 Diarrhea, unspecified (principal)
CPT/HCPCS: 82656

== ENCOUNTER → 2023-01-07 16:35 | Outpatient (CLI) | payer BC, SELFPAY ==
[2023-01-07 17:58] LABS: Iron 67 ug/dL (37-170)
[2023-01-07 18:07] LABS: Total Iron Binding Capacity 293 ug/dL (265-497)
[2023-01-07 18:33] LABS: Ferritin 65.8 ng/ml (6.24-137)
== END ==
PROVIDERS: PCP Nurse Practitioner Family; Visit Provider Nurse Practitioner Family
DX: E83.10 Disorder of iron metabolism, unspecified (principal); R00.2 Palpitations; F41.9 Anxiety disorder, unspecified; G25.81 Restless legs syndrome; G47.9 Sleep disorder, unspecified; R06.81 Apnea, not elsewhere classified; R40.0 Somnolence
CPT/HCPCS: 82728; 83540; 83550

== ENCOUNTER 2023-03-19 18:25 | Emergency (ER) | payer BC, SELFPAY ==
[2023-03-19 19:00] VITALS: BP 143/94; PULSE 114; RESP 20; TEMP 37.7; O2SAT 97; BMI 25.8
[2023-03-19 19:17] LABS: UTC Influenza A Antigen Negative (Negative); UTC Influenza B Antigen Negative (Negative)
--- NOTE | 2023-03-19 19:23 | EXP.UTC ---
Discharge Plan Disposition Patient Disposition: Home, Self-Care Condition: Good Prescriptions Prescriptions: No Action buspirone 10 mg tablet 10 mg PO HS Patient Comments: PLEASE TAKE 1/2 TABLET BY MOUTH DAILY AT BEDTIME FOR 5-7 DAYS AND THEN 1 TABLET DAILY AT BEDTIME FOR 5-7, THEN 1 TABLET TWICE DAILY THEREAFTER Referrals Follow up/Referrals: Jess Bower APRN [Primary Care Provider] - See instructions Activity Restrictions/Add. Instructions Additional Instructions/Restrictions: *Monitor Temp, Over the counter Motrin or Tylenol as directed/as needed Tylenol every 4 hours and Motrin every 6 hours (as long as your family doctor has told you that you can take it) for fever or pain. and straight to ER if unable to lower temp less than 101.0 after medication given *Warm salt water gargles may help to soothe the throat *Throat Lozenges? *Warm fluids like tea with honey may help to soothe the throat? *Sleep elevated *Humidifier/Vaporizer Follow up IMMEDIATELY for new or worsening symptoms or no Noticeable improvement over the next 48-72 hours. 911 for difficulty breathing or swallowing You were tested for today for COVID19 your test result should be back in the next 24 hours you may check your results on the [facility] if your COVID test is positive you will need to Quarantine for 5 days Clinical Impressions Clinical Impression: Viral syndrome Stand Alone Forms Stand Alone Forms: Work/School Release Instructions Patient Instructions: DI for Viral Syndrome, DI for Fever (Symptom) -- Adult Discharge ED Provider: Meg Lauren [facility] General Stated complaint: flu-like symptoms Mode of Arrival: Ambulatory Source of Information: Patient Limitations: No Limitations Time Seen by Provider: 03/19/23 19:23 Description of Symptoms (Recalled from Triage Doc. by RN): PATIENT C/O FEVER, NASAL CONGESTION, BODY ACHES, HEADACHE AND COUGH SINCE LAST NIGHT HEENT Symptoms (Recalled from RN notes): Yes Resp Symptoms (Recalled from RN notes): Yes Skin Symptoms (Recalled from RN notes): No MS Symptoms (Recalled from RN notes): No Functional Status (Recalled from RN notes): WNL History of Present Illness Provider Complaint: Patient states that she was fine yesterday then last night it hit her she started with body aches, chills, nasal congestion headache and cough states that she feels like she may have the flu Related Data Home Medications Medication Instructions Recorded Confirmed buspirone 10 mg tablet 10 mg PO HS MOOD 10/15/22 03/19/23 Allergies Allergy/AdvReac Type Severity Reaction Status Date / Time venom-wasp Allergy Severe Anaphylaxis Verified 03/04/23 14:00 Penicillins Allergy Mild Verified 03/04/23 14:00 iodine Allergy Unknown BLISTERING Verified 03/04/23 14:00 WELTS ofloxacin Allergy Unknown Verified 03/04/23 14:00 ADHESIVES Allergy Severe S-BLISTERING Uncoded 03/04/23 14:00 WELTS Worker's Comp Is this a Worker's Comp case?: No [facility] Disclaimer: The information contained in this section may have been updated after the patient was seen, as this information can be updated by other users. Medical History (Updated 03/19/23 @ 19:31 by Meg Lauren APRN) Allergic reaction Anxiety Gunn's palsy Calculus of kidney delivery delivered COVID-19 vaccine administered Hot flashes due to surgical menopause Insomnia Nonsustained ventricular tachycardia Renal colic on left side SIRS (systemic inflammatory response syndrome) SOB (shortness of breath) on exertion Surgical History History of laparoscopic appendectomy History of nephrectomy, right History of salpingo-oophorectomy History of tonsillectomy History of total vaginal hysterectomy (TVH) Hx laparoscopic cholecystectomy Family History Other No significant fam
[2023-03-19 19:39] VITALS: BP 143/94; PULSE 114; RESP 20; TEMP 37.7; O2SAT 97
== END 2023-03-19 19:49 | disposition home or self-care (01) ==
PROVIDERS: Emergency Provider Nurse Practitioner; PCP Nurse Practitioner Family
DX: U07.1 COVID-19 (principal); R51.9 Headache, unspecified; R50.9 Fever, unspecified; R09.81 Nasal congestion; R05.9 Cough, unspecified; M79.18 Myalgia, other site
CPT/HCPCS: 87635; 87804; 99212; 99213; G0463

== ENCOUNTER 2023-04-23 13:19 | Emergency (ER) | payer BC, SELFPAY ==
[2023-04-23 13:40] VITALS: BP 121/85; PULSE 66; RESP 18; TEMP 36.9; O2SAT 97; BMI 25.8
--- NOTE | 2023-04-23 13:51 | EXP.UTC ---
Discharge Plan Disposition Patient Disposition: Home, Self-Care Condition: Good Prescriptions Prescriptions: New azithromycin [Zithromax] 250 mg tablet 250 mg PO UD DOSE PK Qty: 6 0RF Rx Instructions: Take two (2) tablets today, then one (1) tablet days #2 thru #5 benzonatate [benzonatate] 100 mg capsule 100 mg PO TIDP PRN (Reason: Cough) Qty: 30 0RF methylprednisolone 4 mg Tablets,Dose Pack 4 mg PO DIRECTED 6 Days Qty: 21 0RF Rx Instructions: Take 1 pack as directed for 6 days guaifenesin [Mucinex] 600 mg tablet extended release 12hr 600 - 1,200 mg PO BIDP PRN (Reason: Congestion) Qty: 30 0RF No Action buspirone 10 mg tablet 10 mg PO HS Patient Comments: PLEASE TAKE 1/2 TABLET BY MOUTH DAILY AT BEDTIME FOR 5-7 DAYS AND THEN 1 TABLET DAILY AT BEDTIME FOR 5-7, THEN 1 TABLET TWICE DAILY THEREAFTER Sucraid 8,500 unit/mL solution 2 ml PO 6XD Rx Instructions: must administer with a meal/food Referrals Follow up/Referrals: Chris Duke MD [Primary Care Provider] - See instructions Activity Restrictions/Add. Instructions Additional Instructions/Restrictions: Drink plenty of fluids. Take tylenol or ibuprofen for pain or fever. Take the medications as directed. Follow up with your regular doctor. GO TO THE ER FOR ANY WORSENING SYMPTOMS Clinical Impressions Clinical Impression: Pharyngitis, Bronchitis, Acute viral syndrome Stand Alone Forms Stand Alone Forms: Work/School Release Instructions Patient Instructions: DI for Pharyngitis/Tonsillopharyngitis -- Adult, DI for Acute Bronchitis, DI for Viral Syndrome Discharge ED Provider: Jack Muller [facility] [place] HPI General Stated complaint: sore throat, headache, congestion, SOA Time Seen by Provider: 04/23/23 13:49 History of Present Illness Provider Complaint: She c/o sore throat and chest congestion for the past 3 days. Related Data Home Medications Medication Instructions Recorded Confirmed buspirone 10 mg tablet 10 mg PO HS MOOD 10/15/22 04/23/23 sacrosidase 8,500 unit/mL oral 2 ml PO 6XD 04/02/23 04/23/23 solution (Sucraid) Previous Rx's Medication Instructions Recorded azithromycin 250 mg tablet 250 mg PO UD DOSE PK #6 tabs 04/23/23 (Zithromax) benzonatate 100 mg capsule 100 mg PO TIDP PRN Cough #30 caps 04/23/23 guaifenesin 600 mg tablet, 600 - 1,200 mg PO BIDP PRN 04/23/23 extended release 12 hr (Mucinex) Congestion #30 tabs methylprednisolone 4 mg tablets in 4 mg PO DIRECTED 6 days #21 tabs 04/23/23 a dose pack Allergies Allergy/AdvReac Type Severity Reaction Status Date / Time venom-wasp Allergy Severe Anaphylaxis Verified 04/23/23 13:57 Penicillins Allergy Mild Verified 04/23/23 13:57 iodine Allergy Unknown BLISTERING Verified 04/23/23 13:57 WELTS ofloxacin Allergy Unknown Verified 04/23/23 13:57 ADHESIVES Allergy Severe S-BLISTERING Uncoded 03/04/23 14:00 JAMILA [facility] Disclaimer: The information contained in this section may have been updated after the patient was seen, as this information can be updated by other users. Medical History (Updated 04/23/23 @ 14:28 by Jack Muller APRN) Allergic reaction Anxiety Gunn's palsy Calculus of kidney delivery delivered COVID-19 vaccine administered Hot flashes due to surgical menopause Insomnia Nonsustained ventricular tachycardia Renal colic on left side SIRS (systemic inflammatory response syndrome) SOB (shortness of breath) on exertion Surgical History History of laparoscopic appendectomy History of nephrectomy, right History of salpingo-oophorectomy History of tonsillectomy History of total vaginal hysterectomy (TVH) Hx laparoscopic cholecystectomy Family History Other No significant family history Social History Smoking Status: Never smoker alcohol intake: former substance use type: denies use current occupational status: employed Travel in the last 8 weeks: None household members: family housing: house marital status: single ROS Obtained: Yes All systems reviewed & no additional complaints except as documented Constitutional Constitutional: Reports chills and Reports fever(s) Eyes Eyes: Denies eye discharge ENT Ears, Nose, Mouth, and Throat: Reports as per HPI Cardiovascular Cardiovascular: Denies chest pain Respiratory Respiratory: Denies chest congestion and Reports cough Gastrointestinal Gastrointestingal: Reports nausea; Denies abdominal pain, constipation, cramping, diarrhea or vomiting Musculoskeletal Musculoskeletal: Denies arthralgias Integumentary/Breasts Skin/Breast: Denies rash Neurologic Neurologic: Denies paresthesias Physical Exam General General appearance: alert and in no apparent distress Eye Eye exam: Present normal appearance, PERRL and EOMI ENT ENT exam: Present mucous membranes moist and normal external ear exam Expanded ENT Exam External ear exam: Present normal external inspection TM/Canal exam: Bilateral TM: erythema and bulging Nose exam: Absent sinus tenderness Nasal speculum exam: Bilateral: normal Mouth exam: Present normal external inspection; Absent drooling Teeth exam: Present normal inspection Throat exam: Present tonsillar erythema and tonsillomegaly Neck Neck exam: Present normal inspection, full ROM and trachea midline; Absent tenderness, lymphadenopathy or thyromegaly Chest Chest inspection: Present normal inspection and symmetric chest wall rise; Absent tenderness or rash Respiratory Respiratory exam: Present normal lung sounds bilaterally; Absent respiratory distress, wheezes, stridor or accessory muscle use Cardiovascular Cardiovascular exam: Present regular rate, normal rhythm and normal heart sounds Abdominal Exam Abdominal exam: Present soft; Absent distention, tenderness, guarding, rebound or rigidity Extremities Exam Extremities exam: Present normal inspection, full ROM and normal capillary refill; Absent tenderness or calf tenderness Back Exam Back exam: Present normal inspection and full ROM; Absent tenderness Neurological Exam Neurological exam: Present alert and oriented X3 Psychiatric Psychiatric exam: Present normal affect and normal mood Skin Skin exam: Present warm, dry, intact and normal color Lymphatic Lymphatic Findings: no adenopathy Medical Decision Making Medical Records Medical records reviewed: No I reviewed the patient's medical records. James Inquiry Pt receiving controlled substance: No Lab Data Lab results reviewed: Yes I reviewed the patient's lab results.
[2023-04-23 14:12] LABS: UTC Strep Screen (Rapid) Negative (Negative)
[2023-04-23 14:43] VITALS: BP 121/85; PULSE 66; RESP 18; TEMP 36.9; O2SAT 97
== END 2023-04-23 14:43 | disposition home or self-care (01) ==
PROVIDERS: Emergency Provider Nurse Practitioner Family; PCP Internal Medicine Adolescent Medicine
DX: J40 Bronchitis, not specified as acute or chronic (principal); J02.9 Acute pharyngitis, unspecified; B34.9 Viral infection, unspecified; R51.9 Headache, unspecified; R06.02 Shortness of breath; G51.0 Bell's palsy
CPT/HCPCS: 87880; 99212; 99214; G0463

== ENCOUNTER 2023-07-17 13:55 | Emergency (ER) | payer BC, SELFPAY ==
--- NOTE | 2023-07-17 13:59 | ED_ITS ---
Discharge Plan Disposition Patient Disposition: Home, Self-Care Condition: Good Prescriptions Prescriptions: New prednisone 20 mg tablet 20 mg PO BID Qty: 10 0RF azithromycin [Zithromax Z-Santo] 250 mg tablet See Rx Instructions .ROUTE .COMPLEX Qty: 6 0RF Rx Instructions: For 250 mg dose pack: take 500 mg today (day 1), then 250 mg for 4 days (days 2-5) No Action buspirone 10 mg tablet 10 mg PO HS Patient Comments: PLEASE TAKE 1/2 TABLET BY MOUTH DAILY AT BEDTIME FOR 5-7 DAYS AND THEN 1 TABLET DAILY AT BEDTIME FOR 5-7, THEN 1 TABLET TWICE DAILY THEREAFTER Sucraid 8,500 unit/mL solution 2 ml PO 6XD Rx Instructions: must administer with a meal/food Referrals Follow up/Referrals: Chris Duke MD [Primary Care Provider] - See instructions Clinical Impressions Clinical Impression: Pharyngitis Instructions Patient Instructions: DI for Pharyngitis/Tonsillopharyngitis -- Adult Discharge ED Provider: Ирина Keyes [facility] [place] HPI General Stated complaint: sore throat, body aches, earache Time Seen by Provider: 07/17/23 14:20 History of Present Illness Provider Complaint: Acute onset right ear pain, sore throat, body aches last night while at work. Throat feels swollen and hard to swallow. Ear feels full with pressure. No fever. Onset (ago): day(s) (1) Location: head Relieving factors: none Exacerbating factors: none Associated symptoms: denies other symptoms Treatments prior to arrival: none Related Data Home Medications Medication Instructions Recorded Confirmed buspirone 10 mg tablet 10 mg PO HS MOOD 10/15/22 07/17/23 sacrosidase 8,500 unit/mL oral 2 ml PO 6XD 04/02/23 07/17/23 solution (Sucraid) Previous Rx's Medication Instructions Recorded azithromycin 250 mg tablet See Rx Instructions PO .COMPLEX #6 07/17/23 (Zithromax Z-Santo) tabs prednisone 20 mg tablet 20 mg PO BID #10 tabs 07/17/23 Allergies Allergy/AdvReac Type Severity Reaction Status Date / Time venom-wasp Allergy Severe Anaphylaxis Verified 04/23/23 13:57 Penicillins Allergy Mild Verified 04/23/23 13:57 iodine Allergy Unknown BLISTERING Verified 04/23/23 13:57 WELTS ofloxacin Allergy Unknown Verified 04/23/23 13:57 ADHESIVES Allergy Severe S-BLISTERING Uncoded 03/04/23 14:00 WELTS [facility] Disclaimer: The information contained in this section may have been updated after the patient was seen, as this information can be updated by other users. Medical History (Updated 07/17/23 @ 14:26 by ALIVIA Beebe) Nonsustained ventricular tachycardia SOB (shortness of breath) on exertion Insomnia Hot flashes due to surgical menopause Anxiety delivery delivered Allergic reaction COVID-19 vaccine administered SIRS (systemic inflammatory response syndrome) Renal colic on left side Calculus of kidney Gunn's palsy Surgical History History of laparoscopic appendectomy History of nephrectomy, right History of salpingo-oophorectomy History of tonsillectomy History of total vaginal hysterectomy (TVH) Hx laparoscopic cholecystectomy Family History Other No significant family history Social History Smoking Status: Never smoker alcohol intake: former substance use type: denies use current occupational status: employed Travel in the last 8 weeks: None household members: family housing: house marital status: single ROS Obtained: Yes All systems reviewed & no additional complaints except as documented Constitutional Constitutional: Denies fever(s) ENT Ears, Nose, Mouth, and Throat: Reports otalgia and Reports sore throat Physical Exam General General appearance: alert and in no apparent distress Head Head exam: atraumatic, normocephalic and normal inspection Eye Eye exam: Present normal appearance, PERRL and EOMI ENT ENT exam: Present normal exam, normal oropharynx, mucous membranes moist, TM's normal bilaterally and normal external ear exam Expanded ENT Exam Throat exam: Present tonsillar erythema Neck Neck exam: Present normal inspection, full ROM and trachea midline; Absent meningismus or lymphadenopathy Chest Chest inspection: Present normal inspection and symmetric chest wall rise; Absent tenderness Respiratory Respiratory exam: Present normal lung sounds bilaterally; Absent respiratory distress Cardiovascular Cardiovascular exam: Present regular rate and normal rhythm; Absent JVD Abdominal Exam Abdominal exam: Present soft and normal bowel sounds; Absent distention, tenderness or guarding Extremities Exam Extremities exam: Present normal inspection, full ROM and normal capillary refill; Absent calf tenderness Back Exam Back exam: Present normal inspection; Absent tenderness Neurological Exam Neurological exam: Present alert and oriented X3 Psychiatric Psychiatric exam: Present normal affect and normal mood Skin Skin exam: Present warm, dry, intact and normal color Lymphatic Lymphatic Findings: no adenopathy Medical Decision Making James Inquiry Pt receiving controlled substance: No
[2023-07-17 14:10] VITALS: BP 131/89; PULSE 71; RESP 19; TEMP 37.1; O2SAT 98; BMI 29.5
[2023-07-17 14:27] LABS: UTC Strep Screen (Rapid) Negative (Negative)
[2023-07-17 14:28] VITALS: BP 131/89; PULSE 71; RESP 19; TEMP 37.1; O2SAT 98
== END 2023-07-17 14:30 | disposition home or self-care (01) ==
PROVIDERS: Emergency Provider Physician Assistant; PCP Internal Medicine Adolescent Medicine
DX: J02.9 Acute pharyngitis, unspecified (principal); H92.01 Otalgia, right ear; M79.18 Myalgia, other site
CPT/HCPCS: 87880; 99212; 99214; G0463

== ENCOUNTER 2024-03-08 16:37 | Emergency (ER) | payer BC, SELFPAY ==
[2024-03-08 17:40] VITALS: BP 140/83; PULSE 78; RESP 19; TEMP 36.6; O2SAT 98; BMI 31.9
--- NOTE | 2024-03-08 18:13 | EXP.UTC ---
Discharge Plan Disposition Patient Disposition: Home, Self-Care Condition: Good Prescriptions Prescriptions: New azithromycin [Zithromax Z-Santo] 250 mg tablet See Rx Instructions .ROUTE .COMPLEX 5 Days Qty: 6 0RF Rx Instructions: For 250 mg dose pack: take 500 mg today (day 1), then 250 mg for 4 days (days 2-5) methylprednisolone [Medrol (Santo)] 4 mg tablets,dose pack See Rx Instructions .Route .COMPLEX 6 Days Qty: 21 0RF Rx Instructions: taper pack; No Action Sucraid 8,500 unit/mL solution 2 ml PO 6XD Rx Instructions: must administer with a meal/food Referrals Follow up/Referrals: Chris Duke MD [Primary Care Provider] - See instructions Activity Restrictions/Add. Instructions Additional Instructions/Restrictions: Start antibiotic today. Be sure to complete entire prescription even if feeling better Monitor temp. Tylenol every 4 hours as needed and / or ibuprofen every 6 hours as needed ( As long as your primary care physician has told you that it ok to take both. For fever/aches/pains ER if no less than 101 despite Tylenol or Motrin Humidifier/vaporizer or hot steamy shower *Start steroid tomorrow Helps with inflammation therefore, cough and wheezing. Follow directions on the package. Reviewed side effects. Patient reports taking them before. Follow up IMMEDIATELY for new or worsening of symptoms OR no noticeable improvement over the next 48-72 hours. 911 immediately for any life threatening symptoms such as chest pain or difficulty breathing Clinical Impressions Clinical Impression: Sinusitis Qualifiers: Sinusitis location: unspecified location Chronicity: unspecified Qualified Code(s): J32.9 - Chronic sinusitis, unspecified Instructions Patient Instructions: Sinusitis, DI for Sinusitis Print Language Print Language: Citizen Of [place] Discharge ED Provider: Meg Lauren [facility] [place] H[place] General Stated complaint: sore throat, jennifer, MUNGUIA Mode of Arrival: Ambulatory Source of Information: Patient Limitations: No Limitations Time Seen by Provider: 03/08/24 18:13 Description of Symptoms (Recalled from Triage Doc. by RN): PATIENT C/O CONGESTION, HEADACHE, AND EAR PAIN THAT STARTED THIS MORNING HEENT Symptoms (Recalled from RN notes): Yes Resp Symptoms (Recalled from RN notes): No Skin Symptoms (Recalled from RN notes): No MS Symptoms (Recalled from RN notes): No Functional Status (Recalled from RN notes): WNL History of Present Illness Provider Complaint: Patient states that she has been having sinus congestion and has been worse today States that she has been having pain and pressure behind her eyes worse on right side, pain and pressure in her ears and even making her teeth hurt states feels like she has a bad sinus infection Related Data Home Medications ?Medication ?Instructions ?Recorded ?Confirmed sacrosidase 8,500 unit/mL oral 2 ml PO 6XD 04/02/23 03/08/24 solution (Sucraid) Previous Rx's ?Medication ?Instructions ?Recorded azithromycin 250 mg tablet See Rx Instructions PO .COMPLEX 5 03/08/24 (Zithromax Z-Santo) days #6 tabs methylprednisolone 4 mg tablets in See Rx Instructions .Route 03/08/24 a dose pack (Medrol (Santo)) .COMPLEX 6 days #21 tabs Allergies Allergy/AdvReac Type Severity Reaction Status Date / Time venom-wasp Allergy Severe Anaphylaxis Verified 04/23/23 13:57 Penicillins Allergy Mild Unknown Verified 03/08/24 17:51 allergy reaction iodine Allergy Unknown BLISTERING Verified 04/23/23 13:57 WELTS ofloxacin Allergy Unknown Unknown Verified 03/08/24 17:51 allergy reaction adhesive Allergy Blister Verified 03/08/24 17:51 ADHESIVES Allergy Severe S-BLISTERING Uncoded 03/04/23 14:00 WELTS Worker's Comp Is this a Worker's Comp case?: No [facility] Disclaimer: The information contained in this section may have been updated after the patient was seen, as this information can be updated by other users. Medical History (Updated 03/08/24 @ 18:20 by Meg Lauren APRN) Nonsustained ventricular tachycardia SOB (shortness of breath) on exertion Insomnia Hot flashes due to surgical menopause Anxiety delivery delivered Allergic reaction COVID-19 vaccine administered SIRS (systemic inflammatory response syndrome) Renal colic on left side Calculus of kidney Gunn's palsy Surgical History History of laparoscopic appendectomy History of nephrectomy, right History of salpingo-oophorectomy History of tonsillectomy History of total vaginal hysterectomy (TVH) Hx laparoscopic cholecystectomy Family History Other No significant family history Social History Smoking Status: Never smoker alcohol intake: former substance use type: denies use current occupational status: employed Travel in the last 8 weeks: None household members: family housing: house marital status: single ROS Obtained: Yes All systems reviewed & no additional complaints except as documented and Yes Systems reviewed as appropriate & no additional complaints except as documented Constitutional Constitutional: Reports system reviewed and no additional complaints, except as documented, Reports as per HPI and Reports headache(s) ENT Ears, Nose, Mouth, and Throat: Reports system reviewed and no additional complaints, except as documented, Reports as per HPI, Reports otalgia, Reports headache(s), Reports sinus pain and Reports sinus pressure Cardiovascular Cardiovascular: Reports system reviewed and no additional complaints, except as documented and Reports as per HPI Respiratory Respiratory: Reports system reviewed and no additional complaints, except as documented and Reports as per HPI Gastrointestinal Gastrointestingal: Reports system reviewed and no additional complaints, except as documented and as per HPI Neurologic Neurologic: Reports headache(s) Physical Exam General General appearance: alert and in no apparent distress ENT ENT exam: Present mucous membranes moist Expanded ENT Exam Nose exam: Present sinus tenderness Throat exam: Present other (pnd noted) Respiratory Respiratory exam: Present normal lung sounds bilaterally; Absent respiratory distress or wheezes Cardiovascular Cardiovascular exam: Present regular rate, normal rhythm and normal heart sounds Abdominal Exam Abdominal exam: Present soft and normal bowel sounds; Absent distention or tenderness Neurological Exam Neurological exam: Present alert, oriented X3 and normal gait Medical Decision Making Medical Records Screening: Per USPSTF and CDC recommendations, given the prevalence of disease in our region, it is our hospital?s policy to screen for HIV and viral Hepatitis for all patients aged 18 and over and those with ongoing risk factors. James Inquiry Pt receiving controlled substance: No James was queried for this patient: No Vital Signs: 03/08/24 17:40 Temperature 97.8 F Temperature Source Oral Pulse Rate [Left Brachial] 78 Respiratory Rate 19 Blood Pressure [Left Arm] 140/83 Blood Pressure Mean [Left Arm] 102 Blood Pressure Source [Left Arm] Automatic Cuff Blood Pressure Position [Left Arm] Sitting 02 Sat by Pulse Oximetry 98 Oxygen Delivery Method Room Air Medical Decision Narrative: patient states that she has taken azithromycin and medrol without complications or reactions
[2024-03-08] MEDS: METHYLPREDNISOLONE SOD SUCC 125MG VIAL 125 MG IM (18:23)
[2024-03-08 18:39] VITALS: BP 140/83; PULSE 78; RESP 19; TEMP 36.6; O2SAT 98
== END 2024-03-08 18:43 | disposition home or self-care (01) ==
PROVIDERS: Emergency Provider Nurse Practitioner; PCP Internal Medicine Adolescent Medicine
DX: J32.9 Chronic sinusitis, unspecified (principal); R07.0 Pain in throat; R51.9 Headache, unspecified; R09.81 Nasal congestion; H92.09 Otalgia, unspecified ear
CPT/HCPCS: 99212; G0381; J2919